=== PATIENT | female | born 1945 | race Caucasian/White ===

== ENCOUNTER 2016-08-15 12:30 | Inpatient (IN) | payer MEDICARE, OTHER ==
[~2016-08-15] VITALS: Ht 167.6 cm; Wt 88.5 kg
[2016-08-16] MEDS ORDERED: HUMIRA40 MG/0.2 SUBQ (14:44)
[2016-08-16] MEDS ORDERED: ASPIRIN325 MG ORAL (14:45)
[2016-08-16] MEDS ORDERED: LEVOTHYROXINE50 MCG ORAL (14:47)
[2016-08-16] MEDS ORDERED: METOPROLOL SUCC50 MG ORAL (14:48)
[2016-08-16] MEDS ORDERED: LISINOPRIL10 MG ORAL (14:48)
[2016-08-17] VITALS (12 sets, daily range): BP systolic 102–141; BP diastolic 64–86
--- NOTE | 2016-08-17 14:57 | General Progress Note ---
Assessment/Plan Assessment/Plan knee arthritis s/p knee replacement post operative pain Plan incentive spirometry PT pain management follow up labs continue same impression, plan, and exam edited and reviewed in detail care discussed with RN Subjective Allergies: Coded Allergies: LINAGLIPTIN (Verified Allergy, Intermediate, RASH, 08/16/16) SULFA (SULFONAMIDE ANTIBIOTICS) (Verified Allergy, Intermediate, RASH, ) ADHESIVE TAPE (Verified Adverse Reaction, Severe, 08/17/16) THIN SKIN DUE TO HUMIRA SIDE EFFECT Subjective asked to follow up will see post operatively Objective Last 24 Hour Vital Signs Date Time Temp Pulse Resp B/P Pulse Ox O2 Delivery O2 Flow Rate FiO2 08/17/16 13:21 97.7 78 20 102/66 97 Room Air Height (Feet): 5 Height (Inches): 6.00 Weight (Pounds): 195 Objective WDWN NAD clear breath sounds bilaterally without rhonchi or wheeze [id number] without MRG NABS nontender no HSM no CCE nonfocal ANA UFLLER Aug 17, 2016 14:57
--- NOTE | 2016-08-17 15:53 | Anethesia Preoperative Eval ---
Anesthesia Pre-op PMH/ROS General Date of Evaluation: Aug 17, 2016 Anesthesiologist: Valentino ASA Score: ASA 3 Mallampati Score Class I : Soft palate, uvula, fauces, pillars visible Class II: Soft palate, uvula, fauces visible Class III: Soft palate, base of uvula visible Class IV: Only hard plate visible Mallampati Classification: Class III Surgeon: Gilberto Diagnosis: Left knee osetoarthritis Surgical Procedure: Left TKR Anesthesia History: none Family History: no anesthesia problems Allergies: Coded Allergies: LINAGLIPTIN (Verified Allergy, Intermediate, RASH, 08/16/16) SULFA (SULFONAMIDE ANTIBIOTICS) (Verified Allergy, Intermediate, RASH, ) ADHESIVE TAPE (Verified Adverse Reaction, Severe, 08/17/16) THIN SKIN DUE TO HUMIRA SIDE EFFECT Medications: see eMAR Past Medical History Cardiovascular: Reports: HTN, arrhythmia - afib, with 1st degree AV block, other - HLD, Denies: CAD, MO, valve dz Pulmonary: Reports: JASWINDER - on CPAP, Denies: COPD, asthma, other Gastrointestinal/Genitourinary: Reports: GERD, Denies: CRI, ESRD, other Neurologic/Psychiatric: Denies: CVA, TIA, dementia, depression/anxiety, other Endocrine: Reports: hypothyroidism, Denies: DM, other, steroids HEENT: Denies: [place] (L), [place] (R), cataract (L), cataract (R), glaucoma, other Hematology/Immune: Reports: anemia - chronic, Denies: DVT, bleeding disorder, other Musculoskeletal/Integumentary: Reports: OA, Denies: DDD, DJD, RA, edema, other Other: other - overweight PSxH Narrative: T&A, lap giovani, SEYMOUR/BSO, lumbar lami, left knee arthroscopies Anesthesia Pre-op Phys. Exam Physician Exam Last Vital Signs Date Time Temp Pulse Resp B/P Pulse Ox O2 Delivery O2 Flow Rate FiO2 08/17/16 13:21 97.7 78 20 102/66 97 Room Air Constitutional: NAD Cardiovascular: RRR Airway Exam Mallampati Score: Class III MO: full ROM: full Anesthesia Pre-op A/P Labs see chart Studies Pre-op Studies: EKG - Afib Risk Assessment & Plan Assessment: ASA III Plan: GA Status Change Before Surgery: No Pre-Antibiotics Drug: Ancef 2g Given Within 1 Hr of Incision: Yes Time Given: 17:30 EUGENIO MA M.D. Aug 17, 2016 15:53
--- NOTE | 2016-08-17 16:40 | Pre-Procedure Note/Attestation ---
Pre-Procedure Note/Attestation Complete Prior to Procedure Planned Procedure: left Procedure Narrative: left knee replacement Indications for Procedure Pre-Operative Diagnosis: left knee arthritis Attestation I attest that I discussed the nature of the procedure; its benefits; risks and complications; and alternatives (and the risks and benefits of such alternatives ), prior to the procedure, with the patient (or the patient's legal field sales representative). I attest that, if there was a reasonable possibility of needing a blood transfusion, the patient (or the patient's legal field sales representative) was given the [facility] standardized written summary, pursuant to the Juan Daniel [place] Blood Safety Act ([place] Health and Safety Code # 1645, as amended). I attest that I re-evaluated the patient just prior to the surgery and that there has been no change in the patient's H&P, except as documented below: AURELIA HAWK Aug 17, 2016 16:40
--- NOTE | 2016-08-17 16:43 | Brief Operative Note ---
Immediate Post Operative Note Operative Note Pre-op Diagnosis: left knee arthritis Procedure: left knee repalcement Post-op Diagnosis: left knee arthritis Post-op Diagnosis: same as pre-op Findings: consistent w/pre-op dx studies Surgeon: lisa Redrying Machine Operator: venecia cosby Anesthesia: general Specimen: yes Complications: none Condition: stable Implant(s) used?: Yes AURELIA HAWK Aug 17, 2016 16:43
[2016-08-17] MEDS ORDERED: Morphine Sulfate 2mg/ml Inj IVP PRN (16:45)
[2016-08-17] MEDS ORDERED: Bacitracin 50000 Units Vial ONE (16:46)
[2016-08-17] MEDS ORDERED: Midazolam 2mg/2ml Inj ONE (17:00)
[2016-08-17] MEDS ORDERED: LR 1000ml ONE (17:00)
[2016-08-17] MEDS ORDERED: Lidocaine 1% MPF 10mg/ml 5ml ONE (17:00)
[2016-08-17] MEDS ORDERED: Ketamine 500mg Inj ONE (17:00)
[2016-08-17] MEDS ORDERED: Zemuron 50mg/5ml Inj IV ONE (17:00)
[2016-08-17] MEDS ORDERED: NS Irrig 2000ml IRRIG ONE (17:00)
[2016-08-17] MEDS ORDERED: NS Irrig 1000ml ONE (17:00)
[2016-08-17] MEDS ORDERED: fentaNYL 250mcg/5ml ONE (17:00)
[2016-08-17] MEDS ORDERED: Propofol 10mg/ml 20ml IV ONE (17:19)
[2016-08-17] MEDS ORDERED: DiphenhydrAMINE 50mg/ml Inj ONE (17:19)
--- NOTE | 2016-08-17 18:22 | Immediate Post-Op Evaluation ---
Immediate Post-Op Evalulation Immediate Post-Op Evalulation Procedure: Left total knee replacement Date of Evaluation: Aug 17, 2016 Time of Evaluation: 19:34 IV Fluids: 1.5L Blood Products: 0 Estimated Blood Loss: 100 Urinary Output: 200 Blood Pressure Systolic: 122 Blood Pressure Diastolic: 73 Pulse Rate: 89 Respiratory Rate: 16 O2 Sat by Pulse Oximetry: 99 Temperature (Fahrenheit): 97 Pain Score (1-10): 2 Nausea: No Vomiting: No Complications 0 Patient Status: awake, reacts, patent, none Hydration Status: adequate Drug: Ancef 2g Given Within 1 Hr of Incision: Yes Time Given: 17:30 EUGENIO MA M.D. Aug 17, 2016 18:22
[2016-08-17] MEDS ORDERED: LR 1000ml 1,000 ML IVLG SCH (18:23)
--- NOTE | 2016-08-17 18:23 | 48 Hour Post Anesthesia Eval ---
Post Anesthesia Evaluation Procedure: Left total knee replacement Date of Evaluation: Aug 17, 2016 Time of Evaluation: 07:40 Blood Pressure Systolic: 128 0: 83 Pulse Rate: 93 Respiratory Rate: 19 O2 Sat by Pulse Oximetry: 100 Airway: patent Nausea: No Vomiting: No Hydration Status: adequate Cardiopulmonary Status: at baselilne Mental Status/LOC: patient returned to baseline Post-Anesthesia Complications: 0 Follow-up care needed: N/A - further care as per primary team EUGENIO MA M.D. Aug 17, 2016 18:23
[2016-08-17] MEDS ORDERED: Metoclopramide 10mg/2ml Inj IVP PRN (18:30)
[2016-08-17] MEDS ORDERED: DiphenhydrAMINE 50mg/ml Inj IVP PRN (18:30)
[2016-08-17] MEDS ORDERED: Labetalol 5mg/ml 20ml vial IV PRN (18:30)
[2016-08-17] MEDS ORDERED: fentaNYL 100 mcg/2 mL IV PRN (18:30)
[2016-08-17] MEDS ORDERED: Hydromorphone 0.5mg/0.5ml inj ONE (19:59)
[2016-08-17] MEDS: Hydromorphone 0.5mg/0.5ml inj IVP PRN ×3 (20:05→20:53)
[2016-08-17] MEDS: LORazepam Inj 2mg/ml 1ml IV PRN ×2 (20:17→20:52)
[2016-08-17 22:06] LABS: BASOPHILS % (AUTO) 0.5 % (0.0-2.0); EOSINOPHILS % (AUTO) 1.1 % (0.0-3.0); LYMPHOCYTES % (AUTO) 21.6 % (20.0-45.0); MEAN CORPUSCULAR HEMOGLOBIN 30.6 PG (27.0-31.0); MEAN CORPUSCULAR HGB CONC 32.6 G/DL (32.0-36.0); MEAN CORPUSCULAR VOLUME 94 FL (80-99); MEAN PLATELET VOLUME 6.8 FL (6.5-10.1); MONOCYTES % (AUTO) 7.1 % (1.0-10.0); NEUTROPHILS % (AUTO) 69.8 % (45.0-75.0); PLATELET COUNT 206 K/UL (150-450); RED BLOOD COUNT 3.71 M/UL (4.20-5.40); RED CELL DISTRIBUTION WIDTH 13.9 % (11.6-14.8); WHITE BLOOD COUNT 11.8 K/UL (4.8-10.8)
[2016-08-17 22:18] LABS: INR 1.1 (0.9-1.1); PROTHROMBIN TIME 10.7 SEC (9.30-11.50)
[2016-08-18] VITALS: BP 122/80
[2016-08-18] MEDS: Morphine Sulfate 4mg/ml Inj IVP PRN ×5 (00:25→21:38)
[2016-08-18] MEDS: D5 1/2NS w/KCl 20mEq 1,000 ML IV SCH ×3 (01:00→21:38)
[2016-08-18] MEDS: ceFAZolin sod 1 GM in D5W 55 ML IV SCH ×2 (01:52→09:47)
[2016-08-18 04:00] VITALS: BP 128/83
[2016-08-18 05:57] LABS: BASOPHILS % (AUTO) 0.6 % (0.0-2.0); EOSINOPHILS % (AUTO) 0.2 % (0.0-3.0); LYMPHOCYTES % (AUTO) 11.4 % (20.0-45.0); MEAN CORPUSCULAR HEMOGLOBIN 30.8 PG (27.0-31.0); MEAN CORPUSCULAR HGB CONC 33.4 G/DL (32.0-36.0); MEAN CORPUSCULAR VOLUME 92 FL (80-99); MEAN PLATELET VOLUME 8.3 FL (6.5-10.1); MONOCYTES % (AUTO) 9.2 % (1.0-10.0); NEUTROPHILS % (AUTO) 78.5 % (45.0-75.0); PLATELET COUNT 203 K/UL (150-450); RED BLOOD COUNT 3.83 M/UL (4.20-5.40); RED CELL DISTRIBUTION WIDTH 13.6 % (11.6-14.8); WHITE BLOOD COUNT 10.9 K/UL (4.8-10.8)
[2016-08-18 06:20] LABS: PROTHROMBIN TIME 10.4 SEC (9.30-11.50)
[2016-08-18 06:28] LABS: ANION GAP 13 (5-15); CALCIUM 8.4 mg/dL (8.6-10.2); CARBON DIOXIDE 23 mEQ/L (20-30); CHLORIDE 101 mEQ/L (98-107); HEMOLYSIS 14; POTASSIUM 4.6 mEQ/L (3.4-4.9); SODIUM 137 mEQ/L (135-145)
[2016-08-18] MEDS: Morphine Sulfate 2mg/ml Inj IVP PRN (06:40)
--- NOTE | 2016-08-18 08:48 | General Progress Note ---
Assessment/Plan Assessment/Plan knee arthritis s/p knee replacement post operative pain Plan incentive spirometry PT pain management follow up labs continue same follow up HH resume home meds impression, plan, and exam edited and reviewed in detail care discussed with RN Subjective Allergies: Coded Allergies: LINAGLIPTIN (Verified Allergy, Intermediate, RASH, 08/16/16) SULFA (SULFONAMIDE ANTIBIOTICS) (Verified Allergy, Intermediate, RASH, ) ADHESIVE TAPE (Verified Adverse Reaction, Severe, 08/17/16) THIN SKIN DUE TO HUMIRA SIDE EFFECT Subjective comfortable overnight pain controlled Objective Last 24 Hour Vital Signs Date Time Temp Pulse Resp B/P Pulse Ox O2 Delivery O2 Flow Rate FiO2 08/18/16 08:42 93 19 100 08/18/16 04:00 97.2 93 19 128/83 100 Nasal Cannula 3.0 08/18/16 00:00 97.0 101 19 122/80 99 Nasal Cannula 3.0 08/17/16 21:03 98.0 90 20 131/86 99 Nasal Cannula 3.0 08/17/16 20:53 84 20 125/69 99 Nasal Cannula 3.0 08/17/16 20:52 97.0 08/17/16 20:45 83 20 132/74 99 Nasal Cannula 3.0 08/17/16 20:30 79 20 117/83 99 Nasal Cannula 3.0 08/17/16 20:23 70 20 120/69 99 Nasal Cannula 3.0 08/17/16 20:10 82 20 141/79 99 Nasal Cannula 3.0 08/17/16 20:05 82 20 141/79 99 Simple Mask 8.0 08/17/16 19:55 82 20 141/79 99 Simple Mask 8.0 08/17/16 19:40 99 20 127/71 99 Simple Mask 8.0 08/17/16 19:37 89 16 99 08/17/16 19:35 86 20 110/64 99 Simple Mask 8.0 08/17/16 19:29 98.6 113 20 122/73 99 Simple Mask 8.0 08/17/16 13:21 97.7 78 20 102/66 97 Room Air Intake and Output 08/17/16 08/18/16 19:00 07:00 Intake Total 2900 ml Output Total 1275 ml Balance 1625 ml Intake IV Total 2900 ml Output Urine Total 875 ml Drainage Total 300 ml Estimated Blood Loss 100 ml Laboratory Tests 08/17/16 21:48: White Blood Count 11.8H, Red Blood Count 3.71L, Hemoglobin 11.4L, Hematocrit 34.8L, Mean Corpuscular Volume 94, Mean Corpuscular Hemoglobin 30.6, Mean Corpuscular Hemoglobin Concent 32.6, Red Cell Distribution Width 13.9, Platelet Count 206, Mean Platelet Volume 6.8, Neutrophils (%) (Auto) 69.8, Lymphocytes (% ) (Auto) 21.6, Monocytes (%) (Auto) 7.1, Eosinophils (%) (Auto) 1.1, Basophils ( %) (Auto) 0.5, Prothrombin Time 10.7, Prothromb Time International Ratio 1.1 08/18/16 05:35: White Blood Count 10.9H, Red Blood Count 3.83L, Hemoglobin 11.8L, Hematocrit 35.3L, Mean Corpuscular Volume 92, Mean Corpuscular Hemoglobin 30.8, Mean Corpuscular Hemoglobin Concent 33.4, Red Cell Distribution Width 13.6, Platelet Count 203, Mean Platelet Volume 8.3, Neutrophils (%) (Auto) 78.5H, Lymphocytes ( %) (Auto) 11.4L, Monocytes (%) (Auto) 9.2, Eosinophils (%) (Auto) 0.2, Basophils (%) (Auto) 0.6, Prothrombin Time 10.4, Prothromb Time International Ratio 1.0, Sodium Level 137, Potassium Level 4.6, Chloride Level 101, Carbon Dioxide Level 23, Anion Gap 13, Blood Urea Nitrogen 13, Creatinine 1.0H, Estimat Glomerular Filtration Rate , Glucose Level 141H, Calcium Level 8.4L Height (Feet): 5 Height (Inches): 6.00 Weight (Pounds): 195 Objective WDWN NAD clear breath sounds bilaterally without rhonchi or wheeze [id number] without MRG NABS nontender no HSM no CCE nonfocal ANA FULLER Aug 18, 2016 08:48
[2016-08-18 09:02] VITALS: BP 129/80
[2016-08-18] MEDS: Enoxaparin 40mg Inj SUBQ SCH (09:12)
[2016-08-18] MEDS: celeBREX 200mg Cap **SURGERY PATIENTS ONLY ORAL SCH (09:15)
--- NOTE | 2016-08-18 09:40 | Diagnostic Imaging Report ---
Indication: Left knee. Technique: Left knee 2 views Comparison: None Findings: The patient is status post left total knee arthroplasty. Hardware alignment is satisfactory. Skin michoacano, soft tissue gas and a surgical drain are present. No perihardware fracture is identified. Impression: Status post left total knee arthroplasty with postoperative changes.
[2016-08-18] MEDS: Norco 7.5mg/325mg tab ORAL PRN ×2 (11:15→18:57)
[2016-08-18 16:00] VITALS: BP 124/74
[2016-08-18 20:00] VITALS: BP 115/67
[2016-08-19] VITALS: BP 132/57
[2016-08-19] MEDS: Morphine Sulfate 4mg/ml Inj IVP PRN ×3 (02:29→20:43)
[2016-08-19 04:00] VITALS: BP 130/76
[2016-08-19] MEDS: D5 1/2NS w/KCl 20mEq 1,000 ML IV SCH (07:06)
[2016-08-19 08:00] VITALS: BP 123/73
[2016-08-19 08:47] LABS: PROTHROMBIN TIME 10.6 SEC (9.30-11.50)
[2016-08-19] MEDS: celeBREX 200mg Cap **SURGERY PATIENTS ONLY ORAL SCH (09:23)
[2016-08-19] MEDS: Enoxaparin 40mg Inj SUBQ SCH (09:25)
--- NOTE | 2016-08-19 09:52 | General Progress Note ---
Progress Note Progress Note doing well xrays perfect no calf pain neurovascular intact progressing labs and bvitals stable plan dressing change continue therapy AURELIA HAWK Aug 19, 2016 09:52
--- NOTE | 2016-08-19 10:42 | General Progress Note ---
Assessment/Plan Assessment/Plan knee arthritis s/p knee replacement post operative pain Plan exam stable ortho noted incentive spirometry PT pain management follow up labs continue same follow up HH and need for transfusion dc planning resume home meds impression, plan, and exam edited and reviewed in detail care discussed with RN Subjective Allergies: Coded Allergies: LINAGLIPTIN (Verified Allergy, Intermediate, RASH, 08/16/16) SULFA (SULFONAMIDE ANTIBIOTICS) (Verified Allergy, Intermediate, RASH, ) ADHESIVE TAPE (Verified Adverse Reaction, Severe, 08/17/16) THIN SKIN DUE TO HUMIRA SIDE EFFECT Subjective comfortable overnight no distress at present Objective Last 24 Hour Vital Signs Date Time Temp Pulse Resp B/P Pulse Ox O2 Delivery O2 Flow Rate FiO2 08/19/16 08:00 97.7 94 20 123/73 97 Room Air 08/19/16 04:00 98.1 90 21 130/76 95 Nasal Cannula 08/19/16 00:00 98.2 93 18 132/57 97 Nasal Cannula 08/18/16 22:05 97.9 08/18/16 20:00 97.9 95 14 115/67 96 Room Air 08/18/16 19:56 97.3 08/18/16 16:00 97.3 92 20 124/74 97 Room Air Intake and Output 08/18/16 08/19/16 19:00 07:00 Intake Total 1200 ml 300 ml Output Total 15 ml Balance 1200 ml 285 ml Intake IV Total 1200 ml 300 ml Drainage Total 15 ml # Voids 8 Laboratory Tests 08/19/16 06:30: Prothrombin Time 10.6, Prothromb Time International Ratio 1.0 Height (Feet): 5 Height (Inches): 6.00 Weight (Pounds): 195 Objective WDWN NAD clear breath sounds bilaterally without rhonchi or wheeze [id number] without MRG NABS nontender no HSM no CCE nonfocal ANA FULLER Aug 19, 2016 10:42
[2016-08-19 12:00] VITALS: BP 126/105
[2016-08-19] MEDS ORDERED: Tubing IV Secondary IV ONE (15:23)
[2016-08-19 16:00] VITALS: BP 125/68
[2016-08-19 20:00] VITALS: BP 125/74
[2016-08-20] VITALS: BP 125/72
[2016-08-20] MEDS: Morphine Sulfate 2mg/ml Inj IVP PRN (00:11)
[2016-08-20] MEDS: Norco 7.5mg/325mg tab ORAL PRN ×3 (00:25→14:03)
[2016-08-20 04:00] VITALS: BP 120/64
[2016-08-20 07:36] LABS: PROTHROMBIN TIME 10.5 SEC (9.30-11.50)
[2016-08-20 08:13] VITALS: BP 122/70
--- NOTE | 2016-08-20 08:14 | General Progress Note ---
Assessment/Plan Assessment/Plan knee arthritis s/p knee replacement post operative pain Plan exam stable and without change ortho noted incentive spirometry PT pain management follow up labs noted dc planning to SNF today continue home meds impression, plan, and exam edited and reviewed in detail care discussed with RN Subjective Allergies: Coded Allergies: LINAGLIPTIN (Verified Allergy, Intermediate, RASH, 08/16/16) SULFA (SULFONAMIDE ANTIBIOTICS) (Verified Allergy, Intermediate, RASH, ) ADHESIVE TAPE (Verified Adverse Reaction, Severe, 08/17/16) THIN SKIN DUE TO HUMIRA SIDE EFFECT Subjective comfortable overnight no distress at present ambulating drain out Objective Last 24 Hour Vital Signs Date Time Temp Pulse Resp B/P Pulse Ox O2 Delivery O2 Flow Rate FiO2 08/20/16 08:13 98.1 99 18 122/70 95 Room Air 08/20/16 04:00 97.7 99 18 120/64 95 Room Air 08/20/16 00:00 98.4 109 18 125/72 96 Room Air 08/19/16 20:00 99.0 96 18 125/74 96 Room Air 08/19/16 16:58 Nasal Cannula 3.0 32 08/19/16 16:58 96 Nasal Cannula 3.0 32 08/19/16 16:00 98.2 100 20 125/68 97 Room Air 08/19/16 12:00 98.1 100 20 126/105 96 Room Air Laboratory Tests 08/20/16 05:45: Prothrombin Time 10.5, Prothromb Time International Ratio 1.0 Height (Feet): 5 Height (Inches): 6.00 Weight (Pounds): 195 Objective WDWN NAD clear breath sounds bilaterally without rhonchi or wheeze [id number] without MRG NABS nontender no HSM no CCE nonfocal ANA FULLER Aug 20, 2016 08:14
[2016-08-20] MEDS: celeBREX 200mg Cap **SURGERY PATIENTS ONLY ORAL SCH (08:56)
[2016-08-20] MEDS: Enoxaparin 40mg Inj SUBQ SCH (08:59)
[2016-08-20] MEDS ORDERED: Lisinopril 10mg tab ORAL SCH (09:00)
[2016-08-20 12:01] VITALS: BP 114/84
--- NOTE | 2016-08-21 02:07 | Operative Note - Dictated ---
DATE OF OPERATION: 08/17/2016 NOTE: POOR AUDIO PREOPERATIVE DIAGNOSES: 1. Left knee end-stage osteoarthritis. 2. Left knee flexion contracture. POSTOPERATIVE DIAGNOSES: 1. Left knee end-stage osteoarthritis. 2. Left knee flexion contracture. PROCEDURE: 1. Left total knee replacement . 2. Posterior flexion contracture. SURGEON: Stiven Macias M.D. RESPIRATORY CARE ASSISTANT: Ayesha. SCIENCE FACULTY MEMBER: Alan. PREOPERATIVE NOTE: This is a pleasant lady, who has pain underneath the , injection, and anti-inflammatories, . I explained to her the surgery and the risks being infection, bleeding, anesthetic risks, neurovascular damage, DVT, PE, and failure of the operation. The patient agreed. Consents were obtained. OPERATIVE NOTE: Under the benefit of endotracheal intubation and general anesthetic, the patient's knee was prepped and draped in an appropriate manner . A midline incision was made and incised through the subcutaneous tissue down from medial retinaculum and then everted the patella removing osteophytes from synovium. rheumatoid in etiology. I then proceeded to drill down the center of femur on AP and lateral planes. A . Sizes to the knee making my anterior cut, posterior cut, anterior chamfer, posterior chamfer cut with external rotation with respective epicondyle access perfectly in the to 2 mm of the low side, which is lateral with a built and covered with a 7-degree slope. This was taken off with extension and flexion gap blocks with full extension, full flexion, and full mediolateral stability at 0, 30, 60, 90, and 120 with no medial or lateral instability. Negative drawer. I then proceeded to the patella. The patella looked perfect. A we had full flexion with full mediolateral stability and full range of motion. I closed the retinaculum with number #1 Vicryl, subcutaneous tissue with 2-0 Vicryl, and skin with michoacano. Estimated blood loss is approximately 200 mL. Operative time was approximately 55 minutes. There were no complications. Bal Lorenzo Macias DR: BLESSING JOB#: [id number] CC:
--- NOTE | 2016-08-21 11:02 | Discharge Summary ---
Discharge Summary Hospital Course Date of Admission Aug 17, 2016 at 11:40 Date of Discharge Aug 20, 2016 at 14:33 Admitting Diagnosis L knee osteoarthritis Reason for Hospitalization: elective surgery HPI Jeri Arroyo is a 71 year old female who was admitted on Aug 17, 2016 patient with history of left knee osteoarthritis admitted fro elective surgery Consultations dr Sotelo - internal medicine Procedures 08/17/16 - Left total knee replacement Hospital Course patient with left knee osteoarthritis admitted fro elective surgery s/p 08/17 left total knee replacement CXR post surgery - Hardware alignment is satisfactory. Skin michoacano, soft tissue gas and a surgical drain are present. course of recovery was uneventful initially with drain, which discontinued after drainage decreased surgery followed PT/OT pain management bowel regimen DVT prophylaxis IS , was encouraged to use while in bed tolerated diet voided freely ambulated with assistance stable for discharge to SNF for PT/OT All laboratory work .stable, vital signs stable Discharge Medications Continued Medications: Adalimumab (Humira) 40 Mg/0.8 Ml Pen.ij.kit 40 MG SUBQ Q14D, KIT Aspirin* (Aspirin*) 325 Mg Tablet 325 MG ORAL DAILY, TAB Levothyroxine Sodium* (Levothyroxine Sodium*) 50 Mcg Tablet 50 MCG ORAL DAILY, TAB Take in the morning on an empty stomach, at least 30 minutes before food. Lisinopril* (Lisinopril*) 10 Mg Tablet 10 MG ORAL DAILY, TAB Metoprolol Succinate* (Metoprolol Succinate*) 50 Mg Tab.er.24h 50 MG ORAL DAILY, TAB Discharge Condition Upon Discharge: improving, stable Discharge Disposition Patient was discharged to SNF/Subacute Facility(03) Discharge Diagnoses: (1) Osteoarthritis of left knee (2) S/P total knee replacement Discharge Instructions Discharge Instructions Special Instructions I have been assigned to complete a D/C Summary on this account. I was not involved in the patient management Juanis Walker NP (Vanchtein) Aug 21, 2016 11:02
== END 2016-08-20 14:33 | DRG 470 ==
LOC: SDSOVERFLO 08-17 11:40 → 3E 08-17 23:22
PROC: 0SRD0J9 Replacement of Left Knee Joint with Synthetic Substitute, Cemented, Open Approach (ICD-10-PCS; principal; 2016-08-17 15:00)
DX: M17.12 Unilateral primary osteoarthritis, left knee (principal); I10 Essential (primary) hypertension; K21.9 Gastro-esophageal reflux disease without esophagitis; E78.5 Hyperlipidemia, unspecified; E03.9 Hypothyroidism, unspecified
CPT/HCPCS: 36415; 80048; 82962; 85025; 85610; 86850; 86900; 86901; 86920; 87081; 94003; 94150; 94760; J2250; J2405

== ENCOUNTER → 2017-01-04 | Outpatient (CLI) | payer MEDICARE, OTHER ==
[~2017-01-04] MED LIST: ASPIRIN325 MG ORAL; HUMIRA40 MG/0.2 SUBQ; LEVOTHYROXINE50 MCG ORAL; LISINOPRIL10 MG ORAL; METOPROLOL SUCC50 MG ORAL
--- NOTE | 2017-01-04 15:27 | Diagnostic Imaging Report ---
Indication: COUGH Technique: 2 views of the chest Comparison: none. Findings: Lungs and pleural spaces are clear. Heart size is normal. Bones are unremarkable. Cholecystectomy clips are incidentally noted. Impression: No acute process
== END | disposition home or self-care (01) ==
LOC: RAD 14:25
DX: R05 Cough (principal); Z90.49 Acquired absence of other specified parts of digestive tract
CPT/HCPCS: 71020

== ENCOUNTER 2017-10-08 07:30 | Inpatient (IN) | payer MEDICARE, MEDICAID ==
[~2017-10-08] VITALS: Ht 167.6 cm; Wt 87.2 kg
--- NOTE | 2017-10-10 15:14 | Diagnostic Imaging Report ---
Indication: Cough Technique: 2 views of the chest Comparison: 01/04/2017 Findings: Lungs and pleural spaces are clear. Heart size is normal. No significant change Impression: No acute process
[2017-10-18] VITALS (12 sets, daily range): BP systolic 82–122; BP diastolic 40–72
[2017-10-18] MEDS ORDERED: PCA HYDROmorphone 1mg/ml 30 ML IV PRN (12:15)
[2017-10-18] MEDS ORDERED: oxyCODONE 5mg IR tab ORAL PRN (12:15)
[2017-10-18] MEDS ORDERED: Dronabinol 2.5mg Cap ORAL SCH (12:15)
[2017-10-18] MEDS ORDERED: HYDROmorphone 1mg/ml Carpuject SUBQ PRN (12:15)
[2017-10-18] MEDS ORDERED: NS Irrig 1000ml ONE (12:30)
[2017-10-18] MEDS ORDERED: Amiodarone 150mg/ml 3ml Amp ONE (12:30)
[2017-10-18] MEDS ORDERED: fentaNYL 100 mcg/2 mL IV ONE (12:30)
[2017-10-18] MEDS ORDERED: LR 1000ml ONE (12:30)
[2017-10-18] MEDS ORDERED: Propofol 200mg/20ml IV ONE (12:30)
[2017-10-18] MEDS ORDERED: Midazolam 2mg/2ml Inj ONE (12:30)
[2017-10-18] MEDS ORDERED: NeoSporin Gu Irrig 1ml Amp IRRIG ONE (12:37)
[2017-10-18] MEDS ORDERED: Bacitracin 50000 Units Vial ONE (12:37)
--- NOTE | 2017-10-18 12:38 | Pre-Procedure Note/Attestation ---
Pre-Procedure Note/Attestation Complete Prior to Procedure Planned Procedure: right Procedure Narrative: right knee replacmenet Indications for Procedure Pre-Operative Diagnosis: right knee artyhritis Attestation I attest that I discussed the nature of the procedure; its benefits; risks and complications; and alternatives (and the risks and benefits of such alternatives ), prior to the procedure, with the patient (or the patient's legal in store marketing representative). I attest that, if there was a reasonable possibility of needing a blood transfusion, the patient (or the patient's legal in store marketing representative) was given the [facility] standardized written summary, pursuant to the Juan Daniel [place] Blood Safety Act ([place] Health and Safety Code # 1645, as amended). I attest that I re-evaluated the patient just prior to the surgery and that there has been no change in the patient's H&P, except as documented below: AURELIA HAWK Oct 18, 2017 12:38
[2017-10-18] MEDS ORDERED: LR 1000ml 1,000 ML IVLG SCH (12:41)
[2017-10-18] MEDS ORDERED: Ropivacaine 5mg/ml Vial 30ml INJ ONE (12:42)
[2017-10-18] MEDS ORDERED: Acetaminophen (Non formulary) 100 ML IV ONE (12:45)
[2017-10-18] MEDS ORDERED: Midazolam 2mg/2ml Inj IVP PRN (12:45)
[2017-10-18] MEDS ORDERED: Labetalol 5mg/ml 20ml vial IV PRN (12:45)
[2017-10-18] MEDS ORDERED: DiphenhydrAMINE 50mg/ml Inj IVP PRN (12:45)
[2017-10-18] MEDS ORDERED: HYDROcodone/Acetamin 7.5/325 tab ORAL PRN (12:45)
[2017-10-18] MEDS ORDERED: Morphine Sulfate 2mg/ml Inj IVP PRN ×3 (12:45→19:15)
[2017-10-18] MEDS ORDERED: fentaNYL 100 mcg/2 mL IV PRN (12:45)
[2017-10-18] MEDS ORDERED: Morphine Sulfate 4mg/ml Inj IVP PRN (12:45)
[2017-10-18] MEDS ORDERED: Ketorolac 30mg Inj IV PRN (12:45)
[2017-10-18] MEDS ORDERED: Hydromorphone 0.5mg/0.5ml inj IVP PRN (12:45)
[2017-10-18] MEDS ORDERED: Atropine Inj 1mg/10ml Syr IV PRN (12:45)
[2017-10-18] MEDS ORDERED: Amiodarone 900 MG in D5W 500ml 482 ML IV SCH (13:15)
[2017-10-18] MEDS ORDERED: ceFAZolin sod 1 GM in D5W 55 ML IV SCH (14:00)
--- NOTE | 2017-10-18 15:32 | Diagnostic Imaging Report ---
Indication: Reason For Exam: PREOP Technique: 3 views of the right knee Comparison: None Findings: There are superior and inferior pole patellar osteophytes. There is mild medial compartment degenerative joint space narrowing. No acute fractures. No dislocations. Impression: Mild degenerative changes. No acute process
--- NOTE | 2017-10-18 17:03 | Cardiology Progress Note ---
Assessment/Plan Assessment/Plan [id number] reproted vt priror to surgery wheil sedated (no strip avialve to confirm or review) reported Bradycardia hs of svt / afib remotely nto on anticoagualtionm hs of htn off meds for 5 day hypotension obesity s/ 150 lg weig loss low voltage qrs complexes lorraine hs of pericarditis serial ezyem ekg cortisol echo ivf hold antihypertnsives will need lopes for ramiro and or vent arrthymia will follow dWest/ rn and dr shepherd Objective Last 24 Hour Vital Signs Date Time Temp Pulse Resp B/P (MAP) Pulse Ox O2 Delivery O2 Flow Rate FiO2 10/18/17 15:00 97.9 76 19 92/62 100 Nasal Cannula 2.0 97.9 10/18/17 14:45 77 19 88/61 100 Nasal Cannula 2.0 10/18/17 14:30 76 19 87/61 100 Nasal Cannula 2.0 10/18/17 14:15 75 20 86/62 100 Nasal Cannula 2.0 10/18/17 14:06 74 20 83/63 100 Simple Mask 6.0 10/18/17 14:01 71 19 85/62 100 Simple Mask 6.0 10/18/17 13:56 97.9 72 18 82/55 100 Simple Mask 6.0 97.9 10/18/17 10:54 98.1 70 18 109/68 97 Room Air 98.1 MARCELLO NICHOLSON Oct 18, 2017 17:03
[2017-10-18] MEDS ORDERED: Chloraseptic Spray 20mL Bottle ORAL PRN (17:05)
[2017-10-18] MEDS ORDERED: Cyclobenzaprine 10mg Tab ORAL PRN ×3 (17:13→19:15)
[2017-10-18] MEDS ORDERED: Sodium Chloride 500ML 1,000 ML IV SCH (17:15)
[2017-10-18] MEDS ORDERED: D5 1/2NS w/KCl 20mEq 1,000 ML IV SCH (18:00)
[2017-10-18 19:38] LABS: BASOPHILS % (AUTO) 0.6 % (0.0-2.0); HEMATOCRIT 35.4 % (37.0-47.0); HEMOGLOBIN 12.3 G/DL (12.0-16.0); LYMPHOCYTES % (AUTO) 30.2 % (20.0-45.0); MEAN CORPUSCULAR VOLUME 96 FL (80-99); MONOCYTES % (AUTO) 7.2 % (1.0-10.0); NEUTROPHILS % (AUTO) 61.1 % (45.0-75.0); PLATELET COUNT 175 K/UL (150-450); RED BLOOD COUNT 3.67 M/UL (4.20-5.40)
[2017-10-18] MEDS: Lactobacillus-GG tablet ORAL SCH (19:48)
[2017-10-18 19:57] LABS: ANION GAP 5 mmol/L (5-15); BLOOD UREA NITROGEN 17 mg/dL (7-18); CALCIUM 8.3 MG/DL (8.5-10.1); CARBON DIOXIDE 29 MMOL/L (21-32); CHLORIDE 107 MMOL/L (98-107); CREATININE 1.1 MG/DL (0.55-1.30); POTASSIUM 4.2 MMOL/L (3.5-5.1); SODIUM 141 MMOL/L (136-145)
[2017-10-18 20:05] LABS: ALANINE AMINOTRANSFERASE 24 U/L (12-78); ALKALINE PHOSPHATASE 58 U/L (46-116); ASPARTATE AMINO TRANSFERASE 24 U/L (15-37); BILIRUBIN,TOTAL 0.2 MG/DL (0.2-1.0)
--- NOTE | 2017-10-18 20:45 | Consultation ---
DATE OF CONSULTATION: 10/18/2017 CONSULTING PHYSICIAN: eJffy Pelaez M.D. REFERRING PHYSICIAN: Stiven Macias M.D. REASON FOR CONSULTATION: Acute pain consult. HISTORY OF PRESENT ILLNESS: Dear Dr. Stiven Macias, Thank you kindly for consulting me to evaluate and render an opinion as to how to proceed in the management of the patient's postop pain after right total knee arthroplasty scheduled for later today. The patient is an elderly obese woman. You consulted me to help with her pain control postoperatively since she has multiple medical problem, including cardiac issues. Additionally the pain uses significant narcotics preoperatively, including high-dose marijuana. I saw the patient at bedside. I performed a detailed history and physical examination, I reviewed the medical record in detail including advance directives. PAST MEDICAL HISTORY: 1. Chronic right knee pain, scheduled for right total knee arthroplasty by Dr. Stiven Macias October 18, 2017. 2. Elderly age. 3. Heavy marijuana usage. 4. Hypertension. 5. Hypothyroidism. 6. History of cardiac disease followed by Cardiology. PAST SURGICAL HISTORY: Left total knee arthroplasty by Dr. Macias. MEDICATIONS: Medications at home, aspirin 325 mg daily, Synthroid 50 mcg daily, lisinopril 5 mg daily, metoprolol 50 mg daily, Percocet 10/325 one tablet three times a day , ALLERGIES: Sulfa, adhesive tape which both cause rash. SOCIAL HISTORY: The patient lives alone with cat. The patient denies tobacco or alcohol usage. She admits to smoking marijuana heavily throughout the day at least four times daily. FAMILY HISTORY: Noncontributory. REVIEW OF SYSTEMS: Per attending physician. PHYSICAL EXAMINATION: VITAL SIGNS: Age 72. Height 167 cm. Weight 69 kg. Body mass index 28. Afebrile. Pulse 70, respirations 18, blood pressure 109/68, oxygen saturation 97% on room air. GENERAL: This is a 72-year-old woman who appears much older than her stated age. Moving all extremities x4. NEUROLOGIC: A detailed neurologic and right knee exam per Dr. Macias. BREASTS: Deferred. GENITOURINARY: Deferred. CARDIOPULMONARY: Exam per hospitalist. Alert and orient x3. Pleasant. DIAGNOSTIC TESTING: Including laboratory studies and an cardiology examination are in the medical record. IMPRESSION: 1. Chronic right knee pain, scheduled for right total knee arthroplasty by Dr. Stiven Macias October 18, 2017. 2. Elderly age. 3. Heavy marijuana usage. 4. Hypertension. 5. Hypothyroidism. 6. History of cardiac disease followed by Cardiology. TREATMENT RECOMMENDATIONS: The patient has had previous surgeries, smokes marijuana heavily, and tolerated Percocet and Dilaudid in the past without any adverse side effects. To help with her pain postoperatively, I would recommend the following plan. I would start her on a Dilaudid [employer] with 0.2 mg demand dose at 10-min lockout and 3 mg 4-hour limit. Additionally, I would order continuous pulse oximetry and supplemental oxygen for least the first 24 hours for better safety profile. She chronically uses Flexeril 10 mg for her chronic back pain. Because she smokes marijuana so frequently at home, I would place her on a maximum dose of Marinol 2.5 mg orally every 8 hours for baseline analgesia. I would add breakthrough doses of Roxicodone 10 mg orally every three hours p.r.n. for moderate breakthrough pain. I would add a p.r.n. dose of Dilaudid 1 mg subcutaneously every three hours p.r.n. for severe breakthrough pain. I would instruct the nursing team to wait at least 60 minutes between any doses of sedating or pain medications to avoid respiratory depression in this obese elderly woman. I would order Protonix 40 mg nightly for GI ulcer prophylaxis along with a p.r.n. dose of Mylanta 30 mL q.6 hours in case of any GERD symptom exacerbation. I would order an incentive spirometer and encourage good pulmonary toilet. I will defer DVT prophylaxis to the surgeon. In case of any itching complaints, I would order Benadryl 25 mg every 6 hours p.r.n. I would also order a rescue dose of Zofran 4 mg intravenously every four hours as needed as an antiemetic agent. I would order Chloraseptic spray to the bedside to help with any sore throat complaints. I will defer the patient's multiple medical issues especially her cardiac disease to the hospitalist team to manage. Because the patient does live alone, I would expect she would likely need to be transferred to a rehabilitation facility after she is medically cleared to discharge from [facility]. Jeffy Pelaez M.D. DR: Tom JOB#: [id number] CC: NABIL
[2017-10-18] MEDS ORDERED: Morphine Sulfate 2mg/ml Inj IVP ONE (21:00)
[2017-10-18] MEDS ORDERED: TraZODone 100mg tab ORAL SCH (21:00)
[2017-10-18] MEDS ORDERED: Cyclobenzaprine 10mg Tab ORAL ONE (21:00)
[2017-10-18] MEDS: Aspirin Baby 81mg ORAL SCH (21:24)
[2017-10-18] MEDS: Atorvastatin 20mg tab ORAL SCH (21:24)
[2017-10-18] MEDS: Donepezil 5mg Tab ORAL SCH (21:24)
[2017-10-19] VITALS (22 sets, daily range): BP systolic 87–136; BP diastolic 44–97
--- NOTE | 2017-10-19 00:15 | History and Physical Report ---
DATE OF ADMISSION: 10/18/2017 CHIEF COMPLAINT: Bradicadia HISTORY OF PRESENT ILLNESS: The patient is a pleasant 73-year-old female, who was referred for a right knee replacement while she is being started on general anesthesia. She apparently became bradycardic. The procedure was canceled and she was transferred to the intensive care unit for bradycardia. Currently, heart rate is normal. She denies any chest pain or shortness of breath. The patient has a history of rheumatoid arthritis, pericarditis, hypertensive heart disease. She has significant family history of heart disease. She states that she had a stress test approximately two years ago that was normal. She denies any exertional chest pain, but she does get occasional episodes of chest pain that last only seconds, this come every few weeks. She denies any orthopnea or PND. EKG showed low voltage, venous duplex was negative. Recent echo shows normal LV function without any wall motion abnormalities. The troponin was 1.5. PAST MEDICAL HISTORY: As above. PAST SURGICAL HISTORY: Includes knee replacement, cholecystectomy. CURRENT MEDICATIONS: Reconciled and reviewed. ALLERGIES: Include adhesive tape, linagliptin, sulfa. SOCIAL HISTORY: Negative for tobacco or ethanol. The patient smokes recreational marijuana. FAMILY HISTORY: Significant for the patient has 17 uncle and aunts, who have all of heart disease out of a total of 19 including the patient's mother. REVIEW OF SYSTEMS: GENERAL: No fever or chills. HEENT: No headaches or visual changes. CARDIOPULMONARY: No chest pain or shortness of breath. GASTROINTESTINAL: No nausea or vomiting. GENITOURINARY: No urgency or frequency. MUSCULOSKELETAL: No joint pain or swelling. NEUROLOGIC: No evidence of seizures. PHYSICAL EXAMINATION: VITAL SIGNS: Temperature 97.9 degrees, pulse 76, respirations 19, and blood pressure 92/69. GENERAL: The patient is well developed, in no apparent distress. HEART: Regular rate and rhythm. LUNGS: Clear. ABDOMEN: Soft, nontender, and nondistended. EXTREMITIES: Without clubbing, cyanosis, or edema. LABORATORY DATA: White count 13, hemoglobin 12, hematocrit 35, platelets 175. Sodium 141, creatinine 1.1. Troponin 1.5. EKG showed low voltage. ASSESSMENT: This is a pleasant female with complaints of bradycardia and acute myocardial infarction: 1. Acute myocardial infarction. 2. Significant family history of heart disease. 3. History of hypotension. 4. Rheumatoid arthritis. 5. Hypothyroidism. 6. History of supraventricular tachycardia. PLAN: Antiplatelet therapy with aspirin. P.r.n. nitrates if any chest pain. Followup echo. Serial enzymes. Cardiology evaluation has already been obtained. The patient was brought into the intensive care unit for the time being. Osawld June M.D. DR: Dave JOB#: [id number] CC:
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
[2017-10-19 05:19] LABS: ALANINE AMINOTRANSFERASE 21 U/L (12-78); ALBUMIN 2.6 G/DL (3.4-5.0); ALBUMIN/GLOBULIN RATIO 0.9 (1.0-2.7); ALKALINE PHOSPHATASE 55 U/L (46-116); ANION GAP 6 mmol/L (5-15); ASPARTATE AMINO TRANSFERASE 18 U/L (15-37); BILIRUBIN,TOTAL 0.2 MG/DL (0.2-1.0); BLOOD UREA NITROGEN 15 mg/dL (7-18); CARBON DIOXIDE 29 MMOL/L (21-32); CHLORIDE 107 MMOL/L (98-107); CHOLESTEROL 159 MG/DL (< 200); CREATINE KINASE 43 U/L (26-308); CREATININE 1.1 MG/DL (0.55-1.30); HDL CHOLESTEROL 36 MG/DL (40-60); POTASSIUM 3.8 MMOL/L (3.5-5.1); SODIUM 142 MMOL/L (136-145); TRIGLYCERIDES 155 MG/DL (30-150)
[2017-10-19] MEDS: Aspirin Baby 81mg ORAL SCH (08:04)
[2017-10-19] MEDS: Lactobacillus-GG tablet ORAL SCH ×2 (08:05→17:05)
[2017-10-19] MEDS: Docusate 250mg cap ORAL SCH ×2 (08:05→17:05)
[2017-10-19] MEDS: Heparin 5000 units/ml inj SUBQ SCH ×2 (08:07→20:29)
[2017-10-19] MEDS ORDERED: Enoxaparin 40mg Inj SUBQ SCH (09:00)
--- NOTE | 2017-10-19 09:49 | General Progress Note ---
Assessment/Plan Problem List: (1) Knee arthropathy ICD Codes: M12.9 - Arthropathy, unspecified SNOMED: 340910421 (2) Osteoarthritis of left knee ICD Codes: M17.9 - Osteoarthritis of knee, unspecified SNOMED: 319948545 (3) Arrhythmia ICD Codes: I49.9 - Arrhythmia SNOMED: 877692128 Status: stable, progressing Assessment/Plan antiplt rx monitor for bradycardia dvt prophylaxis pain rx cards follow ?transfer for cath Subjective ROS Limited/Unobtainable: No Constitutional: Reports: malaise, weakness HEENT: Reports: no symptoms Cardiovascular: Reports: no symptoms Respiratory: Reports: no symptoms Gastrointestinal/Abdominal: Reports: no symptoms Genitourinary: Reports: no symptoms Neurologic/Psychiatric: Reports: no symptoms Endocrine: Reports: no symptoms Hematologic/Lymphatic: Reports: no symptoms Allergies: Coded Allergies: LINAGLIPTIN (Verified Allergy, Intermediate, RASH, 08/16/16) SULFA (SULFONAMIDE ANTIBIOTICS) (Verified Allergy, Intermediate, RASH, ) ADHESIVE TAPE (Verified Adverse Reaction, Severe, 08/17/16) THIN SKIN DUE TO HUMIRA SIDE EFFECT All Systems: reviewed and negative except above Subjective generalized pain. trop trending down. no cp/sob. no more bradycardia. Objective Last 24 Hour Vital Signs Date Time Temp Pulse Resp B/P (MAP) Pulse Ox O2 Delivery O2 Flow Rate FiO2 10/19/17 08:09 Nasal Cannula 2.0 28 10/19/17 08:09 99 Nasal Cannula 2.0 28 10/19/17 08:09 70 12 Nasal Cannula 2.0 28 10/19/17 08:00 98.7 76 15 113/70 98 Nasal Cannula 2.0 98.7 10/19/17 07:00 57 21 113/70 99 Nasal Cannula 2.0 10/19/17 06:00 53 18 103/61 98 Nasal Cannula 2.0 10/19/17 05:00 61 17 112/67 97 Nasal Cannula 2.0 10/19/17 04:00 98.5 66 18 113/67 98 Nasal Cannula 2.0 98.5 10/19/17 03:54 64 10/19/17 03:00 61 18 104/56 100 Nasal Cannula 2.0 10/19/17 02:00 50 17 87/44 99 Nasal Cannula 2.0 10/19/17 01:30 28 10/19/17 01:00 67 19 119/76 98 Nasal Cannula 2.0 10/19/17 00:04 98.5 71 20 130/73 99 Nasal Cannula 2.0 98.5 10/18/17 23:36 58 10/18/17 23:00 Nasal Cannula 2.0 28 10/18/17 23:00 56 18 100/60 97 Nasal Cannula 2.0 10/18/17 23:00 98 Nasal Cannula 2.0 28 10/18/17 22:00 57 18 95/40 98 Nasal Cannula 2.0 10/18/17 22:00 62 20 Nasal Cannula 2.0 28 10/18/17 21:00 63 18 122/72 99 Nasal Cannula 2.0 10/18/17 20:00 98.6 59 16 103/58 99 Nasal Cannula 2.0 98.6 10/18/17 19:57 60 10/18/17 19:00 62 16 99 Nasal Cannula 2.0 10/18/17 15:00 97.9 76 19 92/62 100 Nasal Cannula 2.0 97.9 10/18/17 14:45 77 19 88/61 100 Nasal Cannula 2.0 10/18/17 14:30 76 19 87/61 100 Nasal Cannula 2.0 10/18/17 14:15 75 20 86/62 100 Nasal Cannula 2.0 10/18/17 14:06 74 20 83/63 100 Simple Mask 6.0 10/18/17 14:01 71 19 85/62 100 Simple Mask 6.0 10/18/17 13:56 97.9 72 18 82/55 100 Simple Mask 6.0 97.9 10/18/17 10:54 98.1 70 18 109/68 97 Room Air 98.1 Intake and Output 10/18/17 10/19/17 19:00 07:00 Intake Total 120 ml 1750 ml Output Total 1000 ml Balance 120 ml 750 ml Intake Oral 20 ml 630 ml IV Total 100 ml 1120 ml Output Urine Total 1000 ml # Voids 1 # Bowel Movements 1 Laboratory Tests 10/18/17 18:45: White Blood Count 13.0H, Red Blood Count 3.67L, Hemoglobin 12.3, Hematocrit 35.4L, Mean Corpuscular Volume 96, Mean Corpuscular Hemoglobin 33.5H, Mean Corpuscular Hemoglobin Concent 34.7, Red Cell Distribution Width 11.0L, Platelet Count 175, Mean Platelet Volume 8.1, Neutrophils (%) (Auto) 61.1, Lymphocytes (%) (Auto) 30.2, Monocytes (%) (Auto) 7.2, Eosinophils (%) (Auto) 1.0, Basophils (%) (Auto) 0.6, Sodium Level 141, Potassium Level 4.2, Chloride Level 107, Carbon Dioxide Level 29, Anion Gap 5, Blood Urea Nitrogen 17, Creatinine 1.1, Estimat Glomerular Filtration Rate , Glucose Level 78, Calcium Level 8.3L, Total Bilirubin 0.2, Aspartate Amino Transf (AST/SGOT) 24, Alanine Aminotransferase (ALT/SGPT) 24, Alkaline Phosphatase 58, Troponin I 1.506H, Total Protein 5.9L, Albumin 3.0L, Globulin 2.9, Albumin/Globulin Ratio 1.0, Thyroid Stimulating Hormone (TSH) 0.940, Cortisol AM Sample [Pending] 10/19/17 01:00: Troponin I 1.094H 10/19/17 04:05: Sodium Level 142, Potassium Level 3.8, Chloride Level 107, Carbon Dioxide Level 29, Anion Gap 6, Blood Urea Nitrogen 15, Creatinine 1.1, Estimat Glomerular Filtration Rate , Glucose Level 95, Calcium Level 8.0L, Total Bilirubin 0.2, Aspartate Amino Transf (AST/SGOT) 18, Alanine Aminotransferase (ALT/SGPT) 21, Alkaline Phosphatase 55, Troponin I 0.711H, Total Protein 5.6L, Albumin 2.6L, Globulin 3.0, Albumin/Globulin Ratio 0.9L, Magnesium Level 1.8, Total Creatine Kinase 43, Pro-B-Type Natriuretic Peptide 1197H, Triglycerides Level 155H, Cholesterol Level 159, LDL Cholesterol 112H, HDL Cholesterol 36L, Cholesterol/ HDL Ratio 4.4 10/19/17 09:27: White Blood Count [Pending], Red Blood Count [Pending], Hemoglobin [Pending], Hematocrit [Pending], Mean Corpuscular Volume [Pending], Mean Corpuscular Hemoglobin [Pending], Mean Corpuscular Hemoglobin Concent [Pending], Red Cell Distribution Width [Pending], Platelet Count [Pending], Mean Platelet Volume [ Pending], Neutrophils (%) (Auto) [Pending], Lymphocytes (%) (Auto) [Pending], Monocytes (%) (Auto) [Pending], Eosinophils (%) (Auto) [Pending], Basophils (%) (Auto) [Pending], Troponin I [Pending] Height (Feet): 5 Height (Inches): 6.00 Weight (Pounds): 184 General Appearance: WD/WN, alert Neck: supple Cardiovascular: regular rhythm Respiratory/Chest: lungs clear Abdomen: normal bowel sounds, non tender, soft, no organomegaly Edema: no edema noted Arm (L), no edema noted Arm (R), no edema noted Leg (L), no edema noted Leg (R), no edema noted Pedal (L), no edema noted Pedal (R), no edema noted Generalized Neurologic: food and beverage associate II-XII grossly normal, alert SANDRINE SHETH Oct 19, 2017 09:49
[2017-10-19 09:51] LABS: EOSINOPHILS % (AUTO) 1.2 % (0.0-3.0); HEMATOCRIT 34.6 % (37.0-47.0); HEMOGLOBIN 11.9 G/DL (12.0-16.0); LYMPHOCYTES % (AUTO) 32.3 % (20.0-45.0); MEAN CORPUSCULAR VOLUME 98 FL (80-99); MONOCYTES % (AUTO) 6.2 % (1.0-10.0); NEUTROPHILS % (AUTO) 59.3 % (45.0-75.0); PLATELET COUNT 157 K/UL (150-450); RED BLOOD COUNT 3.54 M/UL (4.20-5.40); RED CELL DISTRIBUTION WIDTH 11.4 % (11.6-14.8); WHITE BLOOD COUNT 9.2 K/UL (4.8-10.8)
--- NOTE | 2017-10-19 15:29 | Cardiology Progress Note ---
Assessment/Plan Assessment/Plan 1. NSTEMI 2. reported vt and Bradycardia once sedated for surgery (surgery not performed ) 3. History of SVT as well as questionable atrial fibrillation. 4. History of pericarditis with negative pericardial effusion on a recent echo. 5. History of hyperlipidemia. 6. History of hypertension. 7. History of sleep apnea. 8. Low-voltage QRS complexes. 9. Asymptomatic hypotension. bp improved trop yest peaked ekg now t inversion in v4-5 adn 1 and avvl trop down trending nwo ecotrin start ed yest statin started yest hr has improved will start on BB ntg prn will need cath d/w dr rico will call [facility] for transfer , if nto beds available will need another facility for cath i have d/s pt and dtr and rn heparin if has recurrent cp echo note will try to review images hemodynamically ahs been stable no sig arrhythmias ok to sdu Subjective Cardiovascular: Reports: chest pain - soem earlier to day she say has been havign for the pat 2 weeks but her cars though was not heart related ; Denies: lightheadedness, palpitations Respiratory: Denies: orthopnea, shortness of breath Gastrointestinal/Abdominal: Denies: abdominal pain Genitourinary: Denies: burning Subjective feel anxious want med to calm her down Objective Last 24 Hour Vital Signs Date Time Temp Pulse Resp B/P (MAP) Pulse Ox O2 Delivery O2 Flow Rate FiO2 10/19/17 14:00 72 16 118/67 98 Nasal Cannula 2.0 10/19/17 13:00 98.6 70 15 136/73 99 Nasal Cannula 2.0 98.6 10/19/17 12:00 69 18 131/74 98 Nasal Cannula 2.0 10/19/17 12:00 87 10/19/17 11:00 62 16 115/73 98 Nasal Cannula 2.0 10/19/17 10:00 63 19 101/47 99 Nasal Cannula 2.0 10/19/17 09:00 63 19 108/62 99 Nasal Cannula 2.0 10/19/17 08:09 Nasal Cannula 2.0 28 10/19/17 08:09 99 Nasal Cannula 2.0 28 10/19/17 08:09 70 12 Nasal Cannula 2.0 28 10/19/17 08:00 98.7 76 15 113/70 98 Nasal Cannula 2.0 98.7 10/19/17 08:00 61 10/19/17 07:00 57 21 113/70 99 Nasal Cannula 2.0 10/19/17 06:00 53 18 103/61 98 Nasal Cannula 2.0 10/19/17 05:00 61 17 112/67 97 Nasal Cannula 2.0 10/19/17 04:00 98.5 66 18 113/67 98 Nasal Cannula 2.0 98.5 10/19/17 03:54 64 10/19/17 03:00 61 18 104/56 100 Nasal Cannula 2.0 10/19/17 02:00 50 17 87/44 99 Nasal Cannula 2.0 10/19/17 01:30 28 10/19/17 01:00 67 19 119/76 98 Nasal Cannula 2.0 10/19/17 00:04 98.5 71 20 130/73 99 Nasal Cannula 2.0 98.5 10/18/17 23:36 58 10/18/17 23:00 Nasal Cannula 2.0 28 10/18/17 23:00 56 18 100/60 97 Nasal Cannula 2.0 10/18/17 23:00 98 Nasal Cannula 2.0 28 10/18/17 22:00 57 18 95/40 98 Nasal Cannula 2.0 10/18/17 22:00 62 20 Nasal Cannula 2.0 28 10/18/17 21:00 63 18 122/72 99 Nasal Cannula 2.0 10/18/17 20:00 98.6 59 16 103/58 99 Nasal Cannula 2.0 98.6 10/18/17 19:57 60 10/18/17 19:00 62 16 99 Nasal Cannula 2.0 General Appearance: no apparent distress, alert Neck: supple Cardiovascular: normal rate, regular rhythm Respiratory/Chest: lungs clear, normal breath sounds Abdomen: normal bowel sounds, non tender, soft Extremities: no swelling Intake and Output 10/18/17 10/19/17 19:00 07:00 Intake Total 120 ml 1750 ml Output Total 1000 ml Balance 120 ml 750 ml Intake Oral 20 ml 630 ml IV Total 100 ml 1120 ml Output Urine Total 1000 ml # Voids 1 # Bowel Movements 1 Laboratory Tests Test 10/18/17 18:45 10/19/17 01:00 10/19/17 04:05 10/19/17 09:27 White Blood Count 13.0 K/UL (4.8-10.8) H 9.2 K/UL (4.8-10.8) Red Blood Count 3.67 M/UL (4.20-5.40) L 3.54 M/UL (4.20-5.40) L Hemoglobin 12.3 G/DL (12.0-16.0) 11.9 G/DL (12.0-16.0) L Hematocrit 35.4 % (37.0-47.0) L 34.6 % (37.0-47.0) L Mean Corpuscular Volume 96 FL (80-99) 98 FL (80-99) Mean Corpuscular Hemoglobin 33.5 PG (27.0-31.0) H 33.7 PG (27.0-31.0) H Mean Corpuscular Hemoglobin Concent 34.7 G/DL (32.0-36.0) 34.5 G/DL (32.0-36.0) Red Cell Distribution Width 11.0 % (11.6-14.8) L 11.4 % (11.6-14.8) L Platelet Count 175 K/UL (150-450) 157 K/UL (150-450) Mean Platelet Volume 8.1 FL (6.5-10.1) 8.2 FL (6.5-10.1) Neutrophils (%) (Auto) 61.1 % (45.0-75.0) 59.3 % (45.0-75.0) Lymphocytes (%) (Auto) 30.2 % (20.0-45.0) 32.3 % (20.0-45.0) Monocytes (%) (Auto) 7.2 % (1.0-10.0) 6.2 % (1.0-10.0) Eosinophils (%) (Auto) 1.0 % (0.0-3.0) 1.2 % (0.0-3.0) Basophils (%) (Auto) 0.6 % (0.0-2.0) 1.0 % (0.0-2.0) Sodium Level 141 MMOL/L (136-145) 142 MMOL/L (136-145) Potassium Level 4.2 MMOL/L (3.5-5.1) 3.8 MMOL/L (3.5-5.1) Chloride Level 107 MMOL/L (98-107) 107 MMOL/L (98-107) Carbon Dioxide Level 29 MMOL/L (21-32) 29 MMOL/L (21-32) Anion Gap 5 mmol/L (5-15) 6 mmol/L (5-15) Blood Urea Nitrogen 17 mg/dL (7-18) 15 mg/dL (7-18) Creatinine 1.1 MG/DL (0.55-1.30) 1.1 MG/DL (0.55-1.30) Estimat Glomerular Filtration Rate mL/min (>60) mL/min (>60) Glucose Level 78 MG/DL (74-106) 95 MG/DL (74-106) Calcium Level 8.3 MG/DL (8.5-10.1) L 8.0 MG/DL (8.5-10.1) L Total Bilirubin 0.2 MG/DL (0.2-1.0) 0.2 MG/DL (0.2-1.0) Aspartate Amino Transf (AST/SGOT) 24 U/L (15-37) 18 U/L (15-37) Alanine Aminotransferase (ALT/SGPT) 24 U/L (12-78) 21 U/L (12-78) Alkaline Phosphatase 58 U/L (46-116) 55 U/L (46-116) Troponin I 1.506 ng/mL (0.000-0.056) 1.094 ng/mL (0.000-0.056) 0.711 ng/mL (0.000-0.056) 0.415 ng/mL (0.000-0.056) Total Protein 5.9 G/DL (6.4-8.2) L 5.6 G/DL (6.4-8.2) L Albumin 3.0 G/DL (3.4-5.0) L 2.6 G/DL (3.4-5.0) L Globulin 2.9 g/dL 3.0 g/dL Albumin/Globulin Ratio 1.0 (1.0-2.7) 0.9 (1.0-2.7) L Thyroid Stimulating Hormone (TSH) 0.940 uiU/mL (0.358-3.740) Cortisol AM Sample Pending Magnesium Level 1.8 MG/DL (1.8-2.4) Total Creatine Kinase 43 U/L (26-308) Pro-B-Type Natriuretic Peptide 1197 pg/mL (0-125) H Triglycerides Level 155 MG/DL (30-150) H Cholesterol Level 159 MG/DL (< 200) LDL Cholesterol 112 mg/dL (<100) H HDL Cholesterol 36 MG/DL (40-60) L Cholesterol/HDL Ratio 4.4 (3.3-4.4) MARCELLO NICHOLSON Oct 19, 2017 15:29
[2017-10-19] MEDS ORDERED: ALPRAZolam 0.25mg tab ORAL PRN (15:30)
[2017-10-19] MEDS ORDERED: Metoprolol 25mg tab ORAL SCH (16:00)
--- NOTE | 2017-10-19 19:30 | Progress Note ---
DATE: 10/19/2017 MEDICATIONS: Medication administration record reviewed. Medications include IV fluids, subcutaneous heparin, Lipitor, trazodone, Colace, Protonix, baby aspirin, Synthroid, Aricept. P.r.n. medications include Flexeril and morphine. OBJECTIVE: VITAL SIGNS: Afebrile, pulse 63 with the lower 53 earlier this morning, respirations 19, blood pressure 101/47, and oxygen saturation 99% on supplemental oxygen. LABORATORY STUDIES: From this morning, 10/19/2016 shows white count 9, hematocrit 35, platelets 160. Sodium 142, potassium 3.8, chloride 107, bicarb 29, BUN 16, creatinine 1.1, glucose 95. Magnesium 1.8. Total bilirubin 0.2. AST 18, ALT 21, alkaline phosphatase 55. Total creatine kinase 43. BNP of 1200. Troponin 1.5, 1.1, 0.7, 0.4. The patient was scheduled for right total knee arthroplasty yesterday with Dr. Macias. I had made multiple recommendations to help for pain control postoperatively. As it turned out, the patient has severe bradycardia episodes before surgery was started and the surgical case was canceled with the patient being transferred to intensive care unit. I spoke with incentive care unit nurse this morning. Dr. Hankins is following the patient. The patient had multiple troponin levels drawn. I would remind the medical team that this patient uses high doses of marijuana on a regular basis. The patient admits to smoking at least 4 marijuana joints everyday on a chronic basis. Dr. Hankins currently is ordering her medications. Jeffy Pelaez M.D. DR: KJ JOB#: [id number] CC:
[2017-10-19] MEDS: Donepezil 5mg Tab ORAL SCH (20:27)
[2017-10-19] MEDS: Atorvastatin 20mg tab ORAL SCH (20:28)
[2017-10-19] MEDS ORDERED: TraZODone 100mg tab ORAL SCH (21:00)
[2017-10-20] VITALS: BP 128/76
[2017-10-20] MEDS: ALPRAZolam 0.25mg tab ORAL PRN ×2 (00:55→13:52)
[2017-10-20 04:00] VITALS: BP 142/84
[2017-10-20 08:00] VITALS: BP 125/76
--- NOTE | 2017-10-20 08:32 | General Progress Note ---
Assessment/Plan Problem List: (1) Knee arthropathy ICD Codes: M12.9 - Arthropathy, unspecified SNOMED: 558246513 (2) Osteoarthritis of left knee ICD Codes: M17.9 - Osteoarthritis of knee, unspecified SNOMED: 160955353 (3) Arrhythmia ICD Codes: I49.9 - Arrhythmia SNOMED: 579932240 Status: stable Assessment/Plan antiplt rx monitor for bradycardia dvt prophylaxis pain rx cards follow add ntg on waiting list for bed at [facility] Subjective ROS Limited/Unobtainable: No Constitutional: Reports: malaise, weakness HEENT: Reports: no symptoms Cardiovascular: Reports: chest pain Respiratory: Reports: no symptoms Gastrointestinal/Abdominal: Reports: no symptoms Genitourinary: Reports: no symptoms Neurologic/Psychiatric: Reports: no symptoms Endocrine: Reports: no symptoms Hematologic/Lymphatic: Reports: no symptoms Allergies: Coded Allergies: LINAGLIPTIN (Verified Allergy, Intermediate, RASH, 08/16/16) SULFA (SULFONAMIDE ANTIBIOTICS) (Verified Allergy, Intermediate, RASH, ) ADHESIVE TAPE (Verified Adverse Reaction, Severe, 08/17/16) THIN SKIN DUE TO HUMIRA SIDE EFFECT All Systems: reviewed and negative except above Subjective noted some chest tightness last night. Objective Last 24 Hour Vital Signs Date Time Temp Pulse Resp B/P (MAP) Pulse Ox O2 Delivery O2 Flow Rate FiO2 10/20/17 04:00 98.2 72 20 142/84 99 Room Air 98.2 10/20/17 03:28 80 10/20/17 00:00 98.2 77 20 128/76 98 Nasal Cannula 2.0 98.2 10/19/17 23:51 75 10/19/17 21:00 76 12 120/78 99 Nasal Cannula 2.0 10/19/17 20:41 61 10/19/17 20:00 75 10/19/17 20:00 98.0 77 12 120/78 99 Nasal Cannula 2.0 98.0 10/19/17 19:30 Nasal Cannula 2.0 28 10/19/17 19:30 72 20 Nasal Cannula 2.0 28 10/19/17 19:30 98 Nasal Cannula 2.0 28 10/19/17 19:00 65 16 111/73 99 Nasal Cannula 2.0 10/19/17 18:00 76 16 106/73 99 Nasal Cannula 2.0 10/19/17 17:05 99 116/97 10/19/17 17:00 79 14 115/86 99 Nasal Cannula 2.0 10/19/17 16:00 76 10/19/17 16:00 98.4 72 17 116/97 99 Nasal Cannula 2.0 98.4 10/19/17 15:00 72 18 116/82 99 Nasal Cannula 2.0 10/19/17 14:00 72 16 118/67 98 Nasal Cannula 2.0 10/19/17 13:00 98.6 70 15 136/73 99 Nasal Cannula 2.0 98.6 10/19/17 12:00 69 18 131/74 98 Nasal Cannula 2.0 10/19/17 12:00 87 10/19/17 11:00 62 16 115/73 98 Nasal Cannula 2.0 10/19/17 10:00 63 19 101/47 99 Nasal Cannula 2.0 10/19/17 09:00 63 19 108/62 99 Nasal Cannula 2.0 Intake and Output 10/19/17 10/20/17 19:00 07:00 Intake Total 2190 ml 1330 ml Balance 2190 ml 1330 ml Intake Oral 990 ml 230 ml IV Total 1200 ml 1100 ml # Voids 4 5 # Bowel Movements 1 Laboratory Tests 10/19/17 09:27: White Blood Count 9.2, Red Blood Count 3.54L, Hemoglobin 11.9L, Hematocrit 34.6L , Mean Corpuscular Volume 98, Mean Corpuscular Hemoglobin 33.7H, Mean Corpuscular Hemoglobin Concent 34.5, Red Cell Distribution Width 11.4L, Platelet Count 157, Mean Platelet Volume 8.2, Neutrophils (%) (Auto) 59.3, Lymphocytes (%) (Auto) 32.3, Monocytes (%) (Auto) 6.2, Eosinophils (%) (Auto) 1.2, Basophils (%) (Auto) 1.0, Troponin I 0.415H 10/19/17 15:50: Troponin I 0.439H 10/20/17 03:30: Troponin I 0.236H Height (Feet): 5 Height (Inches): 6.00 Weight (Pounds): 192 General Appearance: WD/WN, alert Neck: supple Cardiovascular: regular rhythm Respiratory/Chest: chest wall non-tender, lungs clear, normal breath sounds Abdomen: normal bowel sounds, non tender, soft, no organomegaly Edema: no edema noted Arm (L), no edema noted Arm (R), no edema noted Leg (L), no edema noted Leg (R), no edema noted Pedal (L), no edema noted Pedal (R), no edema noted Generalized SANDRINE SHETH Oct 20, 2017 08:32
[2017-10-20] MEDS: Aspirin Baby 81mg ORAL SCH (09:00)
[2017-10-20] MEDS: Metoprolol 25mg tab ORAL SCH ×2 (09:00→20:45)
[2017-10-20] MEDS: Docusate 250mg cap ORAL SCH ×2 (09:00→17:31)
[2017-10-20] MEDS: Lactobacillus-GG tablet ORAL SCH ×2 (09:00→17:31)
[2017-10-20] MEDS: Morphine Sulfate 2mg/ml Inj IVP PRN (09:01)
[2017-10-20] MEDS: Heparin 5000 units/ml inj SUBQ SCH ×2 (09:02→20:46)
[2017-10-20 12:00] VITALS: BP 138/91
--- NOTE | 2017-10-20 12:00 | Progress Note ---
DATE: 10/20/2017 ACUTE PAIN MANAGEMENT PHYSICIAN PROGRESS NOTE VITAL SIGNS: Afebrile, pulse 81, respirations 20, blood pressure 142/84, oxygen saturation 99% on room air. LABORATORY DATA: Laboratory study shows decreasing but still positive troponin levels over the past 24 hours. MEDICATIONS: Medication administration record reviewed. Medications include IV fluids, subcutaneous heparin, Lipitor, trazodone, Colace, baby aspirin, Protonix, Synthroid, Lopressor, Aricept. P.r.n. medications include Xanax, Flexeril, morphine. The casting molder, Dr. Hankins transferred the patient from the intensive care unit to the step-down unit to room [facility]. The patient has been alternating p.r.n. doses of Xanax with IV morphine. She has Flexeril available and I would recommend using Marinol as this patient smokes marijuana heavily at home. Transfer to [facility] for cardiac catheterization is pending per Cardiology. Jeffy Pelaez M.D. DR: Mireya JOB#: [id number] CC:
--- NOTE | 2017-10-20 13:54 | Cardiology Progress Note ---
Assessment/Plan Assessment/Plan 1. NSTEMI 2. reported vt and Bradycardia once sedated for surgery (surgery not performed ) 3. History of SVT as well as questionable atrial fibrillation. 4. History of pericarditis with negative pericardial effusion on a recent echo. 5. History of hyperlipidemia. 6. History of hypertension. 7. History of sleep apnea. 8. Low-voltage QRS complexes. 9. Asymptomatic hypotension. bp improved trop yest peaked ekg now t inversion in v4-5 adn 1 and avvl trop down trending nwo ecotrin start ed yest statin started yest hr has improved will start on BB ntg prn will need cath d/w dr rico will call [facility] for transfer , if nto beds available will need another facility for cath she did have soem intermittetn right sided cp that would last 5-6 second but recurrent over a 5 min period none now heparin if has recurrent cp suggestive of angina echo revwied there id hypokin of mid to distal septum and septum hemodynamically remains stable no sig arrhythmias Subjective Cardiovascular: Reports: chest pain - righ sided pain last 5 second recurrent over a 5 min period of time earlier to day nown now ; Denies: lightheadedness, palpitations Respiratory: Denies: shortness of breath Gastrointestinal/Abdominal: Denies: abdominal pain Genitourinary: Denies: burning Subjective anxiety better Objective Last 24 Hour Vital Signs Date Time Temp Pulse Resp B/P (MAP) Pulse Ox O2 Delivery O2 Flow Rate FiO2 10/20/17 12:00 74 10/20/17 12:00 98.4 88 20 138/91 99 Room Air 98.4 10/20/17 09:01 98.2 10/20/17 09:00 81 142/84 10/20/17 08:00 89 10/20/17 08:00 97.5 65 20 125/76 99 Room Air 97.5 10/20/17 04:00 98.2 72 20 142/84 99 Room Air 98.2 10/20/17 03:28 80 10/20/17 00:00 98.2 77 20 128/76 98 Nasal Cannula 2.0 98.2 10/19/17 23:51 75 10/19/17 21:00 76 12 120/78 99 Nasal Cannula 2.0 10/19/17 20:41 61 10/19/17 20:00 75 10/19/17 20:00 98.0 77 12 120/78 99 Nasal Cannula 2.0 98.0 10/19/17 19:30 Nasal Cannula 2.0 28 10/19/17 19:30 72 20 Nasal Cannula 2.0 28 10/19/17 19:30 98 Nasal Cannula 2.0 28 10/19/17 19:00 65 16 111/73 99 Nasal Cannula 2.0 10/19/17 18:00 76 16 106/73 99 Nasal Cannula 2.0 10/19/17 17:05 99 116/97 10/19/17 17:00 79 14 115/86 99 Nasal Cannula 2.0 10/19/17 16:00 76 10/19/17 16:00 98.4 72 17 116/97 99 Nasal Cannula 2.0 98.4 10/19/17 15:00 72 18 116/82 99 Nasal Cannula 2.0 10/19/17 14:00 72 16 118/67 98 Nasal Cannula 2.0 General Appearance: no apparent distress, alert Neck: supple Cardiovascular: normal rate, regular rhythm Respiratory/Chest: lungs clear, normal breath sounds Abdomen: normal bowel sounds, non tender, soft Extremities: no swelling Intake and Output 10/19/17 10/20/17 19:00 07:00 Intake Total 2190 ml 1330 ml Balance 2190 ml 1330 ml Intake Oral 990 ml 230 ml IV Total 1200 ml 1100 ml # Voids 4 5 # Bowel Movements 1 Laboratory Tests Test 10/19/17 15:50 10/20/17 03:30 Troponin I 0.439 ng/mL (0.000-0.056) 0.236 ng/mL (0.000-0.056) Microbiology Date/Time Source Procedure Growth Status 10/18/17 11:20 Nasal Nares MRSA Culture - Final NO METHICILLIN RESISTANT STAPH AUREUS... Complete MARCELLO NICHOLSON Oct 20, 2017 13:54
[2017-10-20 16:00] VITALS: BP 101/60
[2017-10-20 20:00] VITALS: BP 107/65
[2017-10-20] MEDS: Atorvastatin 20mg tab ORAL SCH (20:44)
[2017-10-20] MEDS: TraZODone 100mg tab ORAL SCH (20:44)
[2017-10-20] MEDS: Donepezil 5mg Tab ORAL SCH (20:44)
[2017-10-20] MEDS ORDERED: Cyclobenzaprine 10mg Tab ORAL PRN (21:00)
[2017-10-21 04:00] VITALS: BP 145/88
[2017-10-21] MEDS: ALPRAZolam 0.25mg tab ORAL PRN ×2 (04:04→12:39)
[2017-10-21 04:42] LABS: BASOPHILS % (AUTO) 0.6 % (0.0-2.0); EOSINOPHILS % (AUTO) 1.5 % (0.0-3.0); HEMATOCRIT 36.1 % (37.0-47.0); HEMOGLOBIN 12.8 G/DL (12.0-16.0); LYMPHOCYTES % (AUTO) 27.4 % (20.0-45.0); MEAN CORPUSCULAR VOLUME 95 FL (80-99); MONOCYTES % (AUTO) 9.4 % (1.0-10.0); NEUTROPHILS % (AUTO) 61.1 % (45.0-75.0); PLATELET COUNT 145 K/UL (150-450); RED BLOOD COUNT 3.78 M/UL (4.20-5.40); RED CELL DISTRIBUTION WIDTH 11.5 % (11.6-14.8); WHITE BLOOD COUNT 8.2 K/UL (4.8-10.8)
[2017-10-21 05:18] LABS: ALANINE AMINOTRANSFERASE 18 U/L (12-78); ALBUMIN 2.7 G/DL (3.4-5.0); ALBUMIN/GLOBULIN RATIO 0.8 (1.0-2.7); ALKALINE PHOSPHATASE 55 U/L (46-116); ANION GAP 8 mmol/L (5-15); ASPARTATE AMINO TRANSFERASE 16 U/L (15-37); BILIRUBIN,TOTAL 0.4 MG/DL (0.2-1.0); BLOOD UREA NITROGEN 8 mg/dL (7-18); CALCIUM 8.4 MG/DL (8.5-10.1); CARBON DIOXIDE 27 MMOL/L (21-32); CHLORIDE 107 MMOL/L (98-107); POTASSIUM 3.6 MMOL/L (3.5-5.1); SODIUM 142 MMOL/L (136-145)
[2017-10-21 07:40] VITALS: BP 158/95
[2017-10-21] MEDS: Morphine Sulfate 2mg/ml Inj IVP PRN ×3 (07:43→17:34)
[2017-10-21] MEDS ORDERED: Nitroglycerin Subl 0.4mg tab SL PRN ×2 (08:00→18:00)
--- NOTE | 2017-10-21 08:01 | General Progress Note ---
Assessment/Plan Problem List: (1) Knee arthropathy ICD Codes: M12.9 - Arthropathy, unspecified SNOMED: 875904610 (2) Osteoarthritis of left knee ICD Codes: M17.9 - Osteoarthritis of knee, unspecified SNOMED: 695904967 (3) Arrhythmia ICD Codes: I49.9 - Arrhythmia SNOMED: 074166851 Status: not improved Assessment/Plan antiplt rx monitor for bradycardia dvt prophylaxis pain rx cards follow add ntg repeat troponin cards follow up on waiting list for bed at [facility] Subjective ROS Limited/Unobtainable: No Constitutional: Reports: malaise, weakness HEENT: Reports: no symptoms Cardiovascular: Reports: chest pain Respiratory: Reports: no symptoms Gastrointestinal/Abdominal: Reports: no symptoms Genitourinary: Reports: no symptoms Neurologic/Psychiatric: Reports: no symptoms Endocrine: Reports: no symptoms Hematologic/Lymphatic: Reports: no symptoms Allergies: Coded Allergies: LINAGLIPTIN (Verified Allergy, Intermediate, RASH, 08/16/16) SULFA (SULFONAMIDE ANTIBIOTICS) (Verified Allergy, Intermediate, RASH, ) ADHESIVE TAPE (Verified Adverse Reaction, Severe, 08/17/16) THIN SKIN DUE TO HUMIRA SIDE EFFECT All Systems: reviewed and negative except above Subjective noted some chest tightness this am. given morphine. ekg- no new changes. Objective Last 24 Hour Vital Signs Date Time Temp Pulse Resp B/P (MAP) Pulse Ox O2 Delivery O2 Flow Rate FiO2 10/21/17 04:11 100 10/21/17 04:00 97.9 90 21 145/88 96 Non-Rebreather 15.0 97.9 10/20/17 20:45 91 107/65 10/20/17 20:02 90 10/20/17 20:00 98.2 91 19 107/65 98 Room Air 98.2 10/20/17 16:00 97.9 84 22 101/60 96 Room Air 97.9 10/20/17 16:00 83 10/20/17 12:00 74 10/20/17 12:00 98.4 88 20 138/91 99 Room Air 98.4 10/20/17 09:01 98.2 10/20/17 09:00 81 142/84 Intake and Output 10/20/17 10/21/17 19:00 07:00 Intake Total 1000 ml 1200 ml Balance 1000 ml 1200 ml Intake Oral 300 ml IV Total 700 ml 1200 ml # Voids 3 2 # Bowel Movements 2 Laboratory Tests 10/21/17 03:50: White Blood Count 8.2, Red Blood Count 3.78L, Hemoglobin 12.8, Hematocrit 36.1L , Mean Corpuscular Volume 95, Mean Corpuscular Hemoglobin 33.9H, Mean Corpuscular Hemoglobin Concent 35.6, Red Cell Distribution Width 11.5L, Platelet Count 145L, Mean Platelet Volume 8.2, Neutrophils (%) (Auto) 61.1, Lymphocytes (%) (Auto) 27.4, Monocytes (%) (Auto) 9.4, Eosinophils (%) (Auto) 1.5, Basophils (%) (Auto) 0.6, Prothrombin Time 10.3, Prothromb Time International Ratio 1.0, Activated Partial Thromboplast Time 28, Sodium Level 142, Potassium Level 3.6, Chloride Level 107, Carbon Dioxide Level 27, Anion Gap 8, Blood Urea Nitrogen 8, Creatinine 1.0, Estimat Glomerular Filtration Rate , Glucose Level 92, Calcium Level 8.4L, Magnesium Level 1.7L, Total Bilirubin 0.4, Aspartate Amino Transf (AST/SGOT) 16, Alanine Aminotransferase ( ALT/SGPT) 18, Alkaline Phosphatase 55, Pro-B-Type Natriuretic Peptide 4180H, Total Protein 6.3L, Albumin 2.7L, Globulin 3.6, Albumin/Globulin Ratio 0.8L Height (Feet): 5 Height (Inches): 6.00 Weight (Pounds): 192 Objective General Appearance: WD/WN, alert Neck: supple Cardiovascular: regular rhythm Respiratory/Chest: chest wall non-tender, lungs clear, normal breath sounds Abdomen: normal bowel sounds, non tender, soft, no organomegaly Edema: no edema noted Arm (L), no edema noted Arm (R), no edema noted Leg (L), no edema noted Leg (R), no edema noted Pedal (L), no edema noted Pedal (R), no edema noted Generalized SANDRINE SHETH Oct 21, 2017 08:01
[2017-10-21 08:15] VITALS: BP 155/91
[2017-10-21] MEDS: Heparin 5000 units/ml inj SUBQ SCH (08:49)
[2017-10-21] MEDS: Metoprolol 25mg tab ORAL SCH (08:50)
[2017-10-21] MEDS: Lactobacillus-GG tablet ORAL SCH ×2 (08:50→17:34)
[2017-10-21] MEDS: Aspirin Baby 81mg ORAL SCH (08:51)
[2017-10-21] MEDS: Docusate 250mg cap ORAL SCH ×2 (08:53→17:49)
[2017-10-21] MEDS ORDERED: Dexamethasone 4mg/ml vial ONE (10:26)
[2017-10-21] MEDS ORDERED: Ketorolac 30mg Inj ONE (10:26)
--- NOTE | 2017-10-21 11:42 | Diagnostic Imaging Report ---
Indication: Chest pain Technique: One view of the chest Comparison: 10/10/2017 Findings: There is a small left-sided pleural effusion now present. The remainder of the lungs and pleural spaces are clear. The heart size is upper limit of normal. Impression: Left small pleural effusion No acute process otherwise
[2017-10-21 12:00] VITALS: BP 145/88
[2017-10-21 16:00] VITALS: BP 148/98
[2017-10-21] MEDS ORDERED: Heparin 5000 units/ml inj IV ONE (18:00)
--- NOTE | 2017-10-21 18:06 | Cardiology Progress Note ---
Assessment/Plan Assessment/Plan 1. NSTEMI 2. reported vt and Bradycardia once sedated for surgery (surgery not performed ) 3. History of SVT as well as questionable atrial fibrillation. 4. History of pericarditis with negative pericardial effusion on a recent echo. 5. History of hyperlipidemia. 6. History of hypertension. 7. History of sleep apnea. 8. Low-voltage QRS complexes. 9. Asymptomatic hypotension. she had had pain all day no one called me trop down trending up to midnite today pain imporves with morphine on ecotrin adn sttin ntg prn sl will need cath d/w dr rico will call [facility] for transfer , if nto beds available will need another facility for cath heparin will be started since has cp echo revwied yest there id hypokin of mid to distal septum and septum hemodynamically remains stable no sig arrhythmias repeat trop and ekg nwo ntp pp morphine may need transfer to another facility [facility] iw waitign for a bed her ekg earlier to t inversion in multiple lead ekg jsut performed now has reversion of the t inversion st change in lead v2 only min upward no other continguous lead changes willdo stat trop Subjective Cardiovascular: Reports: chest pain - dull ache all day to day nto a pain she has had before ; Denies: lightheadedness, palpitations Respiratory: Denies: shortness of breath Gastrointestinal/Abdominal: Denies: abdominal pain Genitourinary: Denies: burning Objective Last 24 Hour Vital Signs Date Time Temp Pulse Resp B/P (MAP) Pulse Ox O2 Delivery O2 Flow Rate FiO2 10/21/17 11:53 91 10/21/17 09:11 Nasal Cannula 2.0 28 10/21/17 09:11 99 Nasal Cannula 2.0 28 10/21/17 08:50 93 155/94 10/21/17 08:18 158/95 10/21/17 08:15 20 155/91 98 Nasal Cannula 2.0 10/21/17 07:57 90 10/21/17 07:40 95.9 94 22 158/95 98 Nasal Cannula 2.0 95.9 10/21/17 04:11 100 10/21/17 04:00 97.9 90 21 145/88 96 Non-Rebreather 15.0 97.9 10/20/17 20:45 91 107/65 3/25/18 20:02 90 10/20/17 20:00 98.2 91 19 107/65 98 Room Air 98.2 General Appearance: no apparent distress Neck: supple Cardiovascular: normal rate Respiratory/Chest: lungs clear, normal breath sounds Abdomen: normal bowel sounds, non tender, soft Extremities: no swelling Intake and Output 10/20/17 10/21/17 19:00 07:00 Intake Total 1000 ml 1200 ml Balance 1000 ml 1200 ml Intake Oral 300 ml IV Total 700 ml 1200 ml # Voids 3 2 # Bowel Movements 2 Laboratory Tests Test 10/21/17 03:50 10/21/17 12:20 White Blood Count 8.2 K/UL (4.8-10.8) Red Blood Count 3.78 M/UL (4.20-5.40) L Hemoglobin 12.8 G/DL (12.0-16.0) Hematocrit 36.1 % (37.0-47.0) L Mean Corpuscular Volume 95 FL (80-99) Mean Corpuscular Hemoglobin 33.9 PG (27.0-31.0) H Mean Corpuscular Hemoglobin Concent 35.6 G/DL (32.0-36.0) Red Cell Distribution Width 11.5 % (11.6-14.8) L Platelet Count 145 K/UL (150-450) L Mean Platelet Volume 8.2 FL (6.5-10.1) Neutrophils (%) (Auto) 61.1 % (45.0-75.0) Lymphocytes (%) (Auto) 27.4 % (20.0-45.0) Monocytes (%) (Auto) 9.4 % (1.0-10.0) Eosinophils (%) (Auto) 1.5 % (0.0-3.0) Basophils (%) (Auto) 0.6 % (0.0-2.0) Prothrombin Time 10.3 SEC (9.30-11.50) Prothromb Time International Ratio 1.0 (0.9-1.1) Activated Partial Thromboplast Time 28 SEC (23-33) Sodium Level 142 MMOL/L (136-145) Potassium Level 3.6 MMOL/L (3.5-5.1) Chloride Level 107 MMOL/L (98-107) Carbon Dioxide Level 27 MMOL/L (21-32) Anion Gap 8 mmol/L (5-15) Blood Urea Nitrogen 8 mg/dL (7-18) Creatinine 1.0 MG/DL (0.55-1.30) Estimat Glomerular Filtration Rate mL/min (>60) Glucose Level 92 MG/DL (74-106) Calcium Level 8.4 MG/DL (8.5-10.1) L Magnesium Level 1.7 MG/DL (1.8-2.4) L Total Bilirubin 0.4 MG/DL (0.2-1.0) Aspartate Amino Transf (AST/SGOT) 16 U/L (15-37) Alanine Aminotransferase (ALT/SGPT) 18 U/L (12-78) Alkaline Phosphatase 55 U/L (46-116) Troponin I 0.086 ng/mL (0.000-0.056) 0.075 ng/mL (0.000-0.056) Pro-B-Type Natriuretic Peptide 4180 pg/mL (0-125) H Total Protein 6.3 G/DL (6.4-8.2) L Albumin 2.7 G/DL (3.4-5.0) L Globulin 3.6 g/dL Albumin/Globulin Ratio 0.8 (1.0-2.7) L Microbiology Date/Time Source Procedure Growth Status 10/18/17 21:30 Nasal Nares MRSA Culture - Final NO METHICILLIN RESISTANT STAPH AUREUS... Complete 10/18/17 21:30 Rectum VRE Culture - Final NO VANCOMYCIN RESISTANT ENTEROCOCCUS ... Complete MARCELLO NICHOLSON Oct 21, 2017 18:06
[2017-10-21] MEDS: Nitroglycerin 2% oint pkt TOPIC SCH (18:29)
[2017-10-21] MEDS ORDERED: Guaifenesin/DM 10ml syrup ORAL PRN (18:30)
[2017-10-21 18:41] LABS: BASOPHILS % (AUTO) 0.7 % (0.0-2.0); EOSINOPHILS % (AUTO) 0.4 % (0.0-3.0); HEMATOCRIT 39.8 % (37.0-47.0); LYMPHOCYTES % (AUTO) 19.5 % (20.0-45.0); MEAN CORPUSCULAR VOLUME 95 FL (80-99); MONOCYTES % (AUTO) 10.9 % (1.0-10.0); NEUTROPHILS % (AUTO) 68.5 % (45.0-75.0); PLATELET COUNT 161 K/UL (150-450); RED BLOOD COUNT 4.19 M/UL (4.20-5.40); RED CELL DISTRIBUTION WIDTH 10.9 % (11.6-14.8); WHITE BLOOD COUNT 12.5 K/UL (4.8-10.8)
[2017-10-21] MEDS: Heparin 25,000u/D5W 500ml 500 ML IV SCH (18:44)
--- NOTE | 2017-10-21 19:03 | Cardiology Report ---
APPROVED REPORT EXAM: Two-dimensional and M-mode echocardiogram with Doppler and color Doppler. INDICATION Palpitations M-Mode DIMENSIONS IVSd0.9 (0.7-1.1cm)Left Atrium (MM)3.7 (1.6-4.0cm) LVDd5.2 (3.5-5.6cm)Aortic Root2.6 (2.0-3.7cm) PWd0.9 (0.7-1.1cm)Aortic Cusp Exc.1.8 (1.5-2.0cm) LVDs2.5 (2.5-4.0cm) PWs1.8 cm Normal left ventricular chamber size. Mid to apical anteroseptal wall, mid to apical lateral wall and apical cap hypokinesia, ischemic cardiomyopathy cannot be excluded. Left ventricular ejection fraction estimated to be 40 %. No evidence of left ventricular hypertrophy. Anterior Echo-free space, may be due to pericardial fat or effusion. All other cardiac chamber sizes are within normal limits. Focal aortic valve sclerosis with adequate cusp excursion. Thickened mitral valve leaflets with normal excursion. Mild mitral annulus and aortic root calcification. Pulmonic valve not well visualized. Normal tricuspid valve structure. IVC dilated at 2.1 cm with physiological collapse. A color flow and spectral Doppler study was performed and revealed: Trace aortic insufficiency. Trace mitral regurgitation. reduced left ventricular relaxation c/w impaired relaxation diastolic dysfunction. Trace tricuspid regurgitation. Tricuspid systolic velocities suggests peak right ventricular systolic pressure of 21 mmHg. No pulmonic regurgitation present.
--- NOTE | 2017-10-21 19:27 | Cardiology Report ---
APPROVED REPORT EKG Measurement Heart [id number] Possible LOCKETT block, type 1 Single APC Low voltage QRS Nonspecific T wave abnormality Abnormal ECG
[2017-10-21 20:00] VITALS: BP 125/89
[2017-10-21] MEDS: Metoprolol Tartrate 50mg tab ORAL SCH (20:46)
[2017-10-21] MEDS: TraZODone 100mg tab ORAL SCH (20:46)
[2017-10-21] MEDS: Donepezil 5mg Tab ORAL SCH (20:47)
[2017-10-21] MEDS: Atorvastatin 20mg tab ORAL SCH (20:47)
[2017-10-22] VITALS (7 sets, daily range): BP systolic 101–134; BP diastolic 46–72
[2017-10-22] MEDS: Nitroglycerin 2% oint pkt TOPIC SCH ×3 (06:43→18:10)
[2017-10-22 07:06] LABS: BASOPHILS % (AUTO) 0.9 % (0.0-2.0); EOSINOPHILS % (AUTO) 0.7 % (0.0-3.0); HEMATOCRIT 35.7 % (37.0-47.0); HEMOGLOBIN 12.7 G/DL (12.0-16.0); LYMPHOCYTES % (AUTO) 24.4 % (20.0-45.0); MEAN CORPUSCULAR VOLUME 96 FL (80-99); MONOCYTES % (AUTO) 10.7 % (1.0-10.0); NEUTROPHILS % (AUTO) 63.4 % (45.0-75.0); PLATELET COUNT 149 K/UL (150-450); RED BLOOD COUNT 3.72 M/UL (4.20-5.40); RED CELL DISTRIBUTION WIDTH 11.1 % (11.6-14.8); WHITE BLOOD COUNT 9.1 K/UL (4.8-10.8)
[2017-10-22 07:30] LABS: ALANINE AMINOTRANSFERASE 14 U/L (12-78); ALBUMIN 2.6 G/DL (3.4-5.0); ALBUMIN/GLOBULIN RATIO 0.7 (1.0-2.7); ALKALINE PHOSPHATASE 50 U/L (46-116); ANION GAP 6 mmol/L (5-15); ASPARTATE AMINO TRANSFERASE 16 U/L (15-37); BILIRUBIN,TOTAL 0.7 MG/DL (0.2-1.0); BLOOD UREA NITROGEN 9 mg/dL (7-18); CALCIUM 8.3 MG/DL (8.5-10.1); CARBON DIOXIDE 29 MMOL/L (21-32); CHLORIDE 104 MMOL/L (98-107); POTASSIUM 3.8 MMOL/L (3.5-5.1); SODIUM 139 MMOL/L (136-145)
[2017-10-22] MEDS: Aspirin Baby 81mg ORAL SCH (08:46)
[2017-10-22] MEDS: Lactobacillus-GG tablet ORAL SCH ×2 (08:46→18:11)
[2017-10-22] MEDS: Metoprolol Tartrate 50mg tab ORAL SCH ×2 (08:47→20:38)
[2017-10-22] MEDS: Docusate 250mg cap ORAL SCH ×2 (08:48→18:00)
--- NOTE | 2017-10-22 10:53 | General Progress Note ---
Assessment/Plan Problem List: (1) Knee arthropathy ICD Codes: M12.9 - Arthropathy, unspecified SNOMED: 786889607 (2) Osteoarthritis of left knee ICD Codes: M17.9 - Osteoarthritis of knee, unspecified SNOMED: 616278281 (3) Arrhythmia ICD Codes: I49.9 - Arrhythmia SNOMED: 953715681 Status: stable Assessment/Plan antiplt rx heparin drip monitor for bradycardia dvt prophylaxis pain rx cards follow up on waiting list for bed at [facility] Subjective ROS Limited/Unobtainable: No Constitutional: Reports: malaise, weakness HEENT: Reports: no symptoms Cardiovascular: Reports: chest pain Respiratory: Reports: no symptoms Gastrointestinal/Abdominal: Reports: no symptoms Genitourinary: Reports: no symptoms Neurologic/Psychiatric: Reports: no symptoms Endocrine: Reports: no symptoms Allergies: Coded Allergies: LINAGLIPTIN (Verified Allergy, Intermediate, RASH, 08/16/16) SULFA (SULFONAMIDE ANTIBIOTICS) (Verified Allergy, Intermediate, RASH, ) ADHESIVE TAPE (Verified Adverse Reaction, Severe, 08/17/16) THIN SKIN DUE TO HUMIRA SIDE EFFECT All Systems: reviewed and negative except above Subjective no complaints. pain better controlled. trop trending doen. on heparin drip. Objective Last 24 Hour Vital Signs Date Time Temp Pulse Resp B/P (MAP) Pulse Ox O2 Delivery O2 Flow Rate FiO2 10/22/17 08:47 96 105/60 10/22/17 08:00 98.1 96 20 105/60 96 Nasal Cannula 2.0 98.1 10/22/17 06:43 90/46 10/22/17 04:00 98.0 72 20 111/61 97 Nasal Cannula 2.0 98.0 10/22/17 04:00 98 10/22/17 00:00 98.6 60 20 103/46 97 Nasal Cannula 2.0 98.6 10/22/17 00:00 88 10/21/17 20:46 104 125/89 10/21/17 20:00 106 10/21/17 20:00 99.0 104 18 125/89 95 Nasal Cannula 2.0 99.0 10/21/17 18:29 148/98 10/21/17 16:00 97.7 101 20 148/98 96 Nasal Cannula 2.0 97.7 10/21/17 16:00 97 10/21/17 12:00 97.3 94 20 145/88 96 Nasal Cannula 2.0 97.3 10/21/17 11:53 91 Intake and Output 10/21/17 10/22/17 19:00 07:00 Intake Total 500 ml 251.148 ml Output Total 1500 ml Balance -1000 ml 251.148 ml Intake Oral 500 ml IV Total 251.148 ml Output Urine Total 1500 ml # Voids 6 3 # Bowel Movements 1 Laboratory Tests 10/21/17 12:20: Troponin I 0.075H 10/21/17 18:25: Troponin I 0.069H, White Blood Count 12.5#H, Red Blood Count 4.19L, Hemoglobin 14.0, Hematocrit 39.8, Mean Corpuscular Volume 95, Mean Corpuscular Hemoglobin 33.4H, Mean Corpuscular Hemoglobin Concent 35.1, Red Cell Distribution Width 10.9L, Platelet Count 161, Mean Platelet Volume 8.0, Neutrophils (%) (Auto) 68.5 , Lymphocytes (%) (Auto) 19.5L, Monocytes (%) (Auto) 10.9H, Eosinophils (%) ( Auto) 0.4, Basophils (%) (Auto) 0.7, Activated Partial Thromboplast Time 28 10/22/17 00:30: Activated Partial Thromboplast Time 83H 10/22/17 06:47: Troponin I 0.048, White Blood Count 9.1, Red Blood Count 3.72L, Hemoglobin 12.7 , Hematocrit 35.7L, Mean Corpuscular Volume 96, Mean Corpuscular Hemoglobin 34.3H, Mean Corpuscular Hemoglobin Concent 35.7, Red Cell Distribution Width 11.1L, Platelet Count 149L, Mean Platelet Volume 8.6, Neutrophils (%) (Auto) 63.4, Lymphocytes (%) (Auto) 24.4, Monocytes (%) (Auto) 10.7H, Eosinophils (%) ( Auto) 0.7, Basophils (%) (Auto) 0.9, Activated Partial Thromboplast Time 85H, Sodium Level 139, Potassium Level 3.8, Chloride Level 104, Carbon Dioxide Level 29, Anion Gap 6, Blood Urea Nitrogen 9, Creatinine 1.0, Estimat Glomerular Filtration Rate , Glucose Level 111H, Calcium Level 8.3L, Total Bilirubin 0.7, Aspartate Amino Transf (AST/SGOT) 16, Alanine Aminotransferase (ALT/SGPT) 14, Alkaline Phosphatase 50, Total Protein 6.1L, Albumin 2.6L, Globulin 3.5, Albumin /Globulin Ratio 0.7L Height (Feet): 5 Height (Inches): 4.00 Weight (Pounds): 165 Objective General Appearance: WD/WN, alert Neck: supple Cardiovascular: regular rhythm Respiratory/Chest: chest wall non-tender, lungs clear, normal breath sounds Abdomen: normal bowel sounds, non tender, soft, no organomegaly Edema: no edema noted Arm (L), no edema noted Arm (R), no edema noted Leg (L), no edema noted Leg (R), no edema noted Pedal (L), no edema noted Pedal (R), no edema noted Generalized SANDRINE SHETH Oct 22, 2017 10:53
[2017-10-22] MEDS ORDERED: Tubing IV Secondary IV ONE (15:49)
--- NOTE | 2017-10-22 16:36 | Cardiology Report ---
APPROVED REPORT EKG Measurement Heart [id number] [place] [id number] Sinus tachycardia Nonspecific T wave abnormality Abnormal ECG
--- NOTE | 2017-10-22 16:44 | Cardiology Progress Note ---
Assessment/Plan Assessment/Plan 1. NSTEMI 2. reported vt and Bradycardia once sedated for surgery (surgery not performed ) 3. History of SVT as well as questionable atrial fibrillation. 4. History of pericarditis with negative pericardial effusion on a recent echo. 5. History of hyperlipidemia. 6. History of hypertension. 7. History of sleep apnea. 8. Low-voltage QRS complexes. 9. Asymptomatic hypotension. she had had pain all day yest yet all trop down trending , this am was normal on ecotrin adn statin ntg prn sl will need cath d/w dr rico will call [facility] for transfer , if nto beds available will need another facility for cath heparin started yest due to persistent cp echo revwied there is hypokin of mid to distal septum and septum hemodynamically remains stable no sig arrhythmias ntp pp dilaudid may need transfer to another facility [facility] iw waitign for a bed she seem better to day s d/w tova rico adn [facility] transfer center Subjective Cardiovascular: Denies: chest pain, lightheadedness Respiratory: Denies: shortness of breath Gastrointestinal/Abdominal: Denies: abdominal pain Genitourinary: Denies: burning Subjective feels much better to day Objective Last 24 Hour Vital Signs Date Time Temp Pulse Resp B/P (MAP) Pulse Ox O2 Delivery O2 Flow Rate FiO2 10/22/17 12:00 84 10/22/17 11:37 124/72 10/22/17 11:35 98.4 84 20 124/72 96 Nasal Cannula 2.0 98.4 10/22/17 08:47 96 105/60 10/22/17 08:00 98.1 96 20 105/60 96 Nasal Cannula 2.0 98.1 10/22/17 06:43 90/46 10/22/17 04:00 98.0 72 20 111/61 97 Nasal Cannula 2.0 98.0 10/22/17 04:00 98 10/22/17 00:00 98.6 60 20 103/46 97 Nasal Cannula 2.0 98.6 10/22/17 00:00 88 10/21/17 20:46 104 125/89 10/21/17 20:00 106 10/21/17 20:00 99.0 104 18 125/89 95 Nasal Cannula 2.0 99.0 10/21/17 18:29 148/98 General Appearance: no apparent distress, alert Neck: supple Cardiovascular: normal rate, regular rhythm Respiratory/Chest: lungs clear, normal breath sounds Abdomen: normal bowel sounds, non tender, soft Extremities: no swelling Intake and Output 10/21/17 10/22/17 19:00 07:00 Intake Total 500 ml 251.148 ml Output Total 1500 ml Balance -1000 ml 251.148 ml Intake Oral 500 ml IV Total 251.148 ml Output Urine Total 1500 ml # Voids 6 3 # Bowel Movements 1 Laboratory Tests Test 10/21/17 18:25 10/22/17 00:30 10/22/17 06:47 White Blood Count 12.5 K/UL (4.8-10.8) #H 9.1 K/UL (4.8-10.8) Red Blood Count 4.19 M/UL (4.20-5.40) L 3.72 M/UL (4.20-5.40) L Hemoglobin 14.0 G/DL (12.0-16.0) 12.7 G/DL (12.0-16.0) Hematocrit 39.8 % (37.0-47.0) 35.7 % (37.0-47.0) L Mean Corpuscular Volume 95 FL (80-99) 96 FL (80-99) Mean Corpuscular Hemoglobin 33.4 PG (27.0-31.0) H 34.3 PG (27.0-31.0) H Mean Corpuscular Hemoglobin Concent 35.1 G/DL (32.0-36.0) 35.7 G/DL (32.0-36.0) Red Cell Distribution Width 10.9 % (11.6-14.8) L 11.1 % (11.6-14.8) L Platelet Count 161 K/UL (150-450) 149 K/UL (150-450) L Mean Platelet Volume 8.0 FL (6.5-10.1) 8.6 FL (6.5-10.1) Neutrophils (%) (Auto) 68.5 % (45.0-75.0) 63.4 % (45.0-75.0) Lymphocytes (%) (Auto) 19.5 % (20.0-45.0) L 24.4 % (20.0-45.0) Monocytes (%) (Auto) 10.9 % (1.0-10.0) H 10.7 % (1.0-10.0) H Eosinophils (%) (Auto) 0.4 % (0.0-3.0) 0.7 % (0.0-3.0) Basophils (%) (Auto) 0.7 % (0.0-2.0) 0.9 % (0.0-2.0) Activated Partial Thromboplast Time 28 SEC (23-33) 83 SEC (23-33) H 85 SEC (23-33) H Troponin I 0.069 ng/mL (0.000-0.056) 0.048 ng/mL (0.000-0.056) Sodium Level 139 MMOL/L (136-145) Potassium Level 3.8 MMOL/L (3.5-5.1) Chloride Level 104 MMOL/L (98-107) Carbon Dioxide Level 29 MMOL/L (21-32) Anion Gap 6 mmol/L (5-15) Blood Urea Nitrogen 9 mg/dL (7-18) Creatinine 1.0 MG/DL (0.55-1.30) Estimat Glomerular Filtration Rate mL/min (>60) Glucose Level 111 MG/DL (74-106) H Calcium Level 8.3 MG/DL (8.5-10.1) L Total Bilirubin 0.7 MG/DL (0.2-1.0) Aspartate Amino Transf (AST/SGOT) 16 U/L (15-37) Alanine Aminotransferase (ALT/SGPT) 14 U/L (12-78) Alkaline Phosphatase 50 U/L (46-116) Total Protein 6.1 G/DL (6.4-8.2) L Albumin 2.6 G/DL (3.4-5.0) L Globulin 3.5 g/dL Albumin/Globulin Ratio 0.7 (1.0-2.7) L MARCELLO NICHOLSON Oct 22, 2017 16:44
--- NOTE | 2017-10-22 17:15 | Operative Note - Dictated ---
DATE OF OPERATION: 10/18/2017 SURGEON: Stiven Macias M.D. OPERATIVE NOTE: The patient is due to have a right knee replacement. She was consented. On induction of anesthesia, she developed bradycardia and then tachycardia and ventricular tachycardia. Prior to any cuts being made or prior to the time-out, the operation was canceled. The patient was transferred up to ICU under the guidance of Dr. Jarred Hankins. Dr. Jarred Hankins will continue care and treatment accordingly. I will follow up with the patient on an outpatient setting once she is cardiac cleared in order to do the procedure. Stiven Macias M.D. DR: JOANN JOB#: [id number] CC:
[2017-10-22] MEDS: Heparin 25,000u/D5W 500ml 500 ML IV SCH (19:32)
[2017-10-22] MEDS: Donepezil 5mg Tab ORAL SCH (20:37)
[2017-10-22] MEDS: Atorvastatin 20mg tab ORAL SCH (20:37)
[2017-10-22] MEDS: TraZODone 100mg tab ORAL SCH (20:38)
--- NOTE | 2017-10-24 14:11 | Discharge Summary ---
Discharge Summary Discharge Summary Discharge Summary DATE OF ADMISSION: 10/18/2017 DATE OF DISCHARGE: 10/22/2017 CONSULTANTS: 1. Dr. Jarred Hankins 2. Dr. Stiven Macias 3. Dr. Jeffy Pelaez BRIEF HOSPITAL COURSE: Patient is a 73-year-old female, who was admitted for right knee replacement, who was being started on general anesthesia apparently became bradycardic. The procedure was canceled and patient was transferred to intensive care unit for further evaluation. Patient was reported to have bradycardia at the rate of 58 and went in to ventricular tachycardia at a rate of 170. She had prior history of SVT and possible atrial fibrillation. She has medical history significant for diabetes mellitus, rheumatoid arthritis and sleep apnea. Cardiac troponins were monitored. EKG showed low voltage QRS complexes, no ST or T-wave abnormalities of any significant degree. She had an echocardiogram done that showed EF of 40% with mid to apical anteroseptal wall, mid to apical lateral wall and apical Hypokinesia, possible ischemic cardiomyopathy. There was trace aortic insufficiency, trace mitral regurgitation, reduced diastolic dysfunction , trace tricuspid regurgitation and PA pressure of 21. Troponin peaked to 1.5, she was given aspirin and was started on starting Lipitor, she developed chest pain and was eventually started on heparin drip. She was placed on the list for transfer to acute care hospital for a heart catheterization. She was eventually transferred to [facility], FINAL DIAGNOSES: 1. Non-ST elevated OK 2. Reported ventricular tachycardia and bradycardia 3. History of pericarditis with negative pericardial effusion 4. Hyperlipidemia 5. Hypertension 6. Sleep apnea 7. Asymptomatic hypotension 8. Right Knee arthropathy 9. Osteoarthritis of the left knee DISPOSITION: Patient was transferred to [facility]. I have been assigned to dictate discharge summary on this account, and I was not involved in the patient's management. Shima Kingston NP Oct 24, 2017 14:11
--- NOTE | 2017-10-24 19:17 | Cardiology Report ---
APPROVED REPORT EKG Measurement Heart [id number] [place] 188P67 [id number] Normal sinus rhythm Low voltage QRS T wave abnormality, consider anterolateral ischemia Abnormal ECG
== END 2017-10-22 21:40 | disposition short-term general hospital (02) | DRG 553 ==
LOC: SDSOVERFLO 10-18 10:04 → ICU 10-18 16:52 → 2W 10-19 21:21
DX: M17.11 Unilateral primary osteoarthritis, right knee (principal); I21.4 Non-ST elevation (NSTEMI) myocardial infarction; I47.2 Ventricular tachycardia; E03.9 Hypothyroidism, unspecified; E78.5 Hyperlipidemia, unspecified; R00.1 Bradycardia, unspecified; G47.30 Sleep apnea, unspecified; M06.9 Rheumatoid arthritis, unspecified; I11.9 Hypertensive heart disease without heart failure; Z88.2 Allergy status to sulfonamides; Z88.8 Allergy status to other drugs, medicaments and biological substances; Z82.49 Family history of ischemic heart disease and other diseases of the circulatory system; Z53.09 Procedure and treatment not carried out because of other contraindication; F12.90 Cannabis use, unspecified, uncomplicated
CPT/HCPCS: 36415; 71045; 71046; 80053; 80061; 82533; 82550; 83735; 83880; 84443; 84484; 85025; 85610; 85730; 86850; 86900; 86901; 86920; 87081; 93005; 93306; 93970; 94003; 94150; 94664; 94760; J0282; J2250; J2405

== ENCOUNTER 2018-05-14 05:34 | Inpatient (IN) | payer MEDICARE, MEDICAID ==
[~2018-05-14] VITALS: Ht 167.6 cm; Wt 89.8 kg
[2018-05-14] MEDS ORDERED: Bacitracin 50000 Units Vial ONE (06:30)
[2018-05-14] MEDS ORDERED: NeoSporin Gu Irrig 1ml Amp IRRIG ONE (06:30)
[2018-05-14 06:45] VITALS: BP 126/67
[2018-05-14] MEDS ORDERED: D5 1/2NS w/KCl 20mEq 1,000 ML IV SCH (07:07)
--- NOTE | 2018-05-14 07:07 | Pre-Procedure Note/Attestation ---
Pre-Procedure Note/Attestation Complete Prior to Procedure Planned Procedure: right Procedure Narrative: knee replacement Indications for Procedure Pre-Operative Diagnosis: knee athritis Attestation I attest that I discussed the nature of the procedure; its benefits; risks and complications; and alternatives (and the risks and benefits of such alternatives ), prior to the procedure, with the patient (or the patient's legal in store marketing representative). I attest that, if there was a reasonable possibility of needing a blood transfusion, the patient (or the patient's legal in store marketing representative) was given the [facility] standardized written summary, pursuant to the [place] Blood Safety Act ([place] Health and Safety Code # 1645, as amended). I attest that I re-evaluated the patient just prior to the surgery and that there has been no change in the patient's H&P, except as documented below: Stiven Macias MD May 14, 2018 07:07
[2018-05-14 07:13] LABS: BILIRUBIN, URINE NEGATIVE (NEGATIVE); COLOR,URINE PALE YELLOW; GLUCOSE, URINE (UA) NEGATIVE (NEGATIVE); KETONES,URINE NEGATIVE (NEGATIVE); LEUKOCYTE ESTERASE ,URINE 3+ (NEGATIVE); NITRITE,URINE NEGATIVE (NEGATIVE); PH,URINE 5 (4.5-8.0); PROTEIN,URINE NEGATIVE (NEGATIVE); UROBILINOGEN,URINE NORMAL MG/DL (0.0-1.0)
[2018-05-14] MEDS ORDERED: Morphine Sulfate 2mg/ml Inj IVP PRN ×2 (07:15)
[2018-05-14] MEDS ORDERED: HYDROcodone/Acetamin 7.5/325 tab ORAL PRN (07:15)
[2018-05-14] MEDS ORDERED: Morphine Sulfate 4mg/ml Inj (IV/IM USE ONLY) IVP PRN (07:15)
[2018-05-14 07:25] LABS: APPEARANCE,URINE SLIGHTLY CLOUDY
[2018-05-14] MEDS ORDERED: Enoxaparin 40mg Inj SUBQ SCH (09:00)
[2018-05-14] MEDS ORDERED: DONEPEZIL HCL5 MG ORAL (12:09)
[2018-05-14] MEDS ORDERED: TRAZODONE HCL100 MG ORAL (12:09)
[2018-05-14] MEDS ORDERED: ZOFRAN4 M1 ORAL (12:09)
[2018-05-14] MEDS ORDERED: ASPIR 8181 MG ORAL (12:09)
[2018-05-14] MEDS ORDERED: CRESTOR20 MG ORAL (12:09)
[2018-05-14] MEDS ORDERED: [UNRECOGNIZED DRUG - OTHER] PO (12:09)
[2018-05-14] MEDS ORDERED: DIGESTIVE ENZY1 EACH PO (12:09)
[2018-05-14] MEDS ORDERED: COL-RITE100 MG PO (12:09)
[2018-05-14] MEDS ORDERED: PANTOPRAZOLE SO40 MG ORAL (12:09)
[2018-05-14] MEDS ORDERED: OXYCODONE IR15 MG ORAL (12:09)
[2018-05-14] MEDS ORDERED: METOPROLOL SUCC50 MG ORAL (12:09)
[2018-05-14] MEDS ORDERED: CYCLOBENZAPRINE10 MG ORAL (12:09)
[2018-05-14] MEDS ORDERED: ceFAZolin sod 1 GM in D5W 55 ML IV SCH (14:00)
--- NOTE | 2018-05-14 14:41 | Diagnostic Imaging Report ---
Indication: Knee pain Technique: 4 views of the right knee Comparison: 10/18/2017 Findings:No acute fractures. No dislocations. Stable questionable small lucency in the medial epicondyle. There is some medial and lateral compartmental degenerative joint space narrowing. There are small superior and inferior pole patellar traction osteophyte. No suprapatellar effusion. No significant change Impression: Stable findings as described, since 10/18/2017. No acute bony trauma Degenerative changes as described
[2018-05-21] VITALS (14 sets, daily range): BP systolic 85–133; BP diastolic 49–84
[2018-05-21] MEDS ORDERED: Naloxone 0.4mg/ml Inj IV PRN ×2 (07:30)
[2018-05-21] MEDS ORDERED: NeoSporin Gu Irrig 1ml Amp IRRIG ONE (10:57)
[2018-05-21] MEDS ORDERED: Bacitracin 50000 Units Vial ONE (10:57)
[2018-05-21 11:11] LABS: APPEARANCE,URINE CLEAR; BILIRUBIN, URINE NEGATIVE (NEGATIVE); COLOR,URINE PALE YELLOW; GLUCOSE, URINE (UA) NEGATIVE (NEGATIVE); KETONES,URINE NEGATIVE (NEGATIVE); LEUKOCYTE ESTERASE ,URINE 1+ (NEGATIVE); NITRITE,URINE NEGATIVE (NEGATIVE); PH,URINE 5 (4.5-8.0); PROTEIN,URINE NEGATIVE (NEGATIVE); UROBILINOGEN,URINE NORMAL MG/DL (0.0-1.0)
[2018-05-21] MEDS ORDERED: cloNIDine 1000mcg/10ml inj ONE (11:54)
[2018-05-21] MEDS ORDERED: Bupivacaine 0.5% Inj 30 ml vial INJ ONE (11:55)
[2018-05-21] MEDS ORDERED: Ropivacaine 5mg/ml Vial 30ml INJ ONE (11:55)
[2018-05-21] MEDS ORDERED: LR 1000ml ONE (12:00)
[2018-05-21] MEDS ORDERED: Sterile Water Irrig 1000ml IRRIG ONE (12:00)
[2018-05-21] MEDS ORDERED: EPINEPHrine 1mg/1ml Amp ONE ×2 (12:04→12:24)
[2018-05-21] MEDS ORDERED: LR 1000ml 1,000 ML IVLG SCH (12:11)
[2018-05-21] MEDS ORDERED: NS Irrig 1000ml IRRIG ONE (12:13)
[2018-05-21] MEDS ORDERED: Midazolam 2mg/2ml Inj IVP PRN (12:15)
[2018-05-21] MEDS ORDERED: oxyCODONE HCL/Acetaminophen 5/325mg ORAL PRN (12:15)
[2018-05-21] MEDS ORDERED: Meperidine 50mg/ml Inj(FOR RIGORS ONLY) IVP PRN (12:15)
[2018-05-21] MEDS ORDERED: DiphenhydrAMINE 50mg/ml Inj IVP PRN (12:15)
[2018-05-21] MEDS ORDERED: Atropine Sulfate 0.4mg/ml inj IVP PRN (12:15)
[2018-05-21] MEDS ORDERED: Metoclopramide 10mg/2ml Inj IVP PRN (12:15)
[2018-05-21] MEDS ORDERED: fentaNYL 100 mcg/2 mL IV PRN (12:15)
[2018-05-21] MEDS ORDERED: Ketorolac 30mg Inj IV PRN ×2 (12:15)
[2018-05-21] MEDS ORDERED: Norco 5mg/325mg tab ORAL PRN (12:15)
[2018-05-21] MEDS ORDERED: Hydromorphone 0.5mg/0.5ml inj IVP PRN (12:15)
[2018-05-21] MEDS ORDERED: LORazepam Inj 2mg/ml 1ml IV PRN (12:15)
[2018-05-21] MEDS ORDERED: HYDROcodone/Acetamin 7.5/325 tab ORAL PRN (12:15)
--- NOTE | 2018-05-21 12:20 | Anethesia Preoperative Eval ---
Anesthesia Pre-op PMH/ROS General Date of Evaluation: May 21, 2018 Time of Evaluation: 12:11 Anesthesiologist: Tonya ASA Score: ASA 3 Mallampati Score Class I : Soft palate, uvula, fauces, pillars visible Class II: Soft palate, uvula, fauces visible Class III: Soft palate, base of uvula visible Class IV: Only hard plate visible Mallampati Classification: Class III Surgeon: Gilberto Diagnosis: R Knee Pain Surgical Procedure: R Total Knee Arthroplasty Anesthesia History: none Family History: no anesthesia problems Allergies: Coded Allergies: LEFLUNOMIDE (Verified Allergy, Severe, 05/14/18) dizziness SULFA (SULFONAMIDE ANTIBIOTICS) (Verified Allergy, Intermediate, RASH, ) ADHESIVE TAPE (Verified Adverse Reaction, Severe, 08/17/16) THIN SKIN DUE TO HUMIRA SIDE EFFECT Medications: see eMAR Patient NPO?: Yes NPO Date: May 20, 2018 NPO Time: 2100 Past Medical History Cardiovascular: Reports: HTN, CAD, HI, arrhythmia - AFib, 1 degree A/V Block, SVT, other - HL Pulmonary: Reports: JASWINDER - CPAP Gastrointestinal/Genitourinary: Reports: GERD - Gastroparesis Neurologic/Psychiatric: Reports: depression/anxiety Endocrine: Reports: hypothyroidism HEENT: Reports: cataract (L), cataract (R), glaucoma Other: obesity - BMI 34 PSxH Narrative: SEYMOUR, Cholecystectomy, Lumbar SX, L TKR Anesthesia Pre-op Phys. Exam Physician Exam Last Vital Signs Date Time Temp Pulse Resp B/P (MAP) Pulse Ox O2 Delivery O2 Flow Rate FiO2 05/21/18 11:25 97.7 62 18 125/77 (93) 98 97.7 05/14/18 06:45 Room Air Constitutional: NAD Neurologic: CN 2-12 intact Cardiovascular: RRR Respiratory: CTA Gastrointestinal: S/NT/ND Airway Exam Mallampati Score: Class III MO: limited ROM: limited Teeth: missing, intact Anesthesia Pre-op A/P Risk Assessment & Plan Assessment: ASA 3 Plan: GA, SED, Spinal, R Adductor Block Status Change Before Surgery: No Pre-Antibiotics Dru Grams Ancef IV Given Within 1 Hr of Incision: Yes Time Given: 12:54 Deepak Castaneda MD May 21, 2018 12:20
[2018-05-21] MEDS ORDERED: Lidocaine 1% MPF 10mg/ml 5ml ONE (12:23)
[2018-05-21] MEDS ORDERED: Dexamethasone 4mg/ml vial ONE (12:23)
[2018-05-21] MEDS ORDERED: Propofol 200mg/20ml IV ONE (12:23)
[2018-05-21] MEDS ORDERED: Alfentanil 2ml Inj ONE (12:26)
[2018-05-21] MEDS ORDERED: Midazolam 2mg/2ml Inj ONE ×2 (12:26→12:37)
[2018-05-21] MEDS ORDERED: Morphine Sulfate 2mg/ml Inj IVP PRN ×2 (12:45)
[2018-05-21] MEDS ORDERED: Morphine Sulfate 4mg/ml Inj (IV/IM USE ONLY) IVP PRN (12:45)
[2018-05-21] MEDS ORDERED: ePHEDrine 50mg/ml Inj ONE (13:11)
[2018-05-21] MEDS ORDERED: Glycopyrrolate 0.2mg/ml 1ml Vial ONE (13:16)
--- NOTE | 2018-05-21 13:41 | Immediate Post-Op Evaluation ---
Immediate Post-Op Evalulation Immediate Post-Op Evalulation Procedure: Right Knee Toatal Arthroplasty Date of Evaluation: May 21, 2018 Time of Evaluation: 14:28 IV Fluids: 500 LR Blood Products: 0 Estimated Blood Loss: 10 Urinary Output: 0 Blood Pressure Systolic: 93 Blood Pressure Diastolic: 56 Pulse Rate: 82 Respiratory Rate: 16 O2 Sat by Pulse Oximetry: 98 Temperature (Fahrenheit): 97.5 Pain Score (1-10): 1 Nausea: No Vomiting: No Complications 0 Patient Status: awake, reacts, patent, extubated, none Hydration Status: adequate Dru Grams Ancef IV Given Within 1 Hr of Incision: Yes Time Given: 12:54 Deepak Castaneda MD May 21, 2018 13:41
[2018-05-21] MEDS ORDERED: Cyclobenzaprine 10mg Tab ORAL PRN (13:52)
[2018-05-21] MEDS ORDERED: oxyCODONE 5mg IR tab ORAL PRN ×3 (14:00→17:00)
[2018-05-21] MEDS ORDERED: HYDROmorphone 1mg/ml Carpuject SUBQ PRN ×2 (14:00→14:15)
[2018-05-21] MEDS ORDERED: Hydromorphone 0.5mg/0.5ml inj SUBQ PRN (14:15)
[2018-05-21] MEDS ORDERED: Dronabinol 2.5mg Cap ORAL SCH ×2 (14:53→22:00)
[2018-05-21] MEDS ORDERED: PCA HYDROmorphone 30mg/30ml Syr IV PRN (14:56)
[2018-05-21] MEDS ORDERED: Rate Change PCA 1 Each MISC PRN (15:00)
--- NOTE | 2018-05-21 16:29 | Diagnostic Imaging Report ---
Indication: Postoperative, status post right total knee arthroplasty Technique: 2 views of the right knee Comparison: none Findings: There is a right knee prosthesis, appearing well aligned. Retained air from the surgical exposure is seen in the soft tissues. There are overlying skin mich[place]. Impression: Postoperative right knee. No unusual features
[2018-05-21] MEDS: D5 1/2NS w/KCl 20mEq 1,000 ML IV SCH (17:49)
[2018-05-21] MEDS: PCA shift volume MISC SCH (19:15)
--- NOTE | 2018-05-21 20:30 | Consultation ---
DATE OF CONSULTATION: 05/21/2018 CONSULTING PHYSICIAN: Jeffy Pelaez M.D. REFERRING PHYSICIAN: Stiven Macias M.D. REASON FOR CONSULT: Acute pain consult. HISTORY OF PRESENT ILLNESS: Dear Dr. Macias, Thank you kindly for once again consulting me to help with this patient's pain control after her knee replacement surgery today. The patient is well known to me from September 2017 when she was admitted for elective right total knee arthroplasty. At that time, her surgery was postponed, as she had a heart attack in the perioperative period, which aborted her knee replacement procedure. She was again scheduled for surgery within the past couple of weeks. That surgery was delayed for her urinary tract infection. Today, she returned to [facility] for her elective knee replacement surgery. I performed detailed history and physical examination. I reviewed the medical record in detail including advance directives. The patient does use significant narcotics preoperatively including high dose marijuana. PAST MEDICAL HISTORY: 1. Acute postoperative right knee pain status post right total knee arthroplasty by Dr. Stiven Macias April 2018. 2. History of cardiac disease status post myocardial infarction in September 2017. 3. Hypothyroidism. 4. Hypertension. 5. Heavy marijuana usage. 6. Elderly age. PAST SURGICAL HISTORY: Previous left total knee arthroplasty by Dr. Macias. MEDICATIONS: At home, Percocet, Synthroid, metoprolol, lisinopril, and aspirin. ALLERGIES: Adhesive tape and sulfa. SOCIAL HISTORY: The patient admits to smoking marijuana heavily throughout the day at least four times per day. She denies tobacco or alcohol usage. She lives alone with her cat. FAMILY HISTORY: Noncontributory. REVIEW OF SYSTEMS: Per attending physician. PHYSICAL EXAMINATION: GENERAL: Age 73, body mass index 28. Weight 69 kg. VITAL SIGNS: In the medical record. HEENT: Normocephalic and atraumatic. The patient appears much older than her stated age of 73. NEUROLOGIC: Detailed neurologic exam per Dr. Macias. Pain with range of motion of the knee, especially flexion. EXTREMITIES: Dressing appears clean and dry. BREASTS: Deferred to the hospitalist. GENITOURINARY: Deferred to the hospitalist. DIAGNOSTIC TESTING: In the medical record. IMPRESSION: 1. Acute postoperative right knee pain status post right total knee arthroplasty by Dr. Stiven Macias in April 2018. 2. History of cardiac disease, status post myocardial infarction September 2017. 3. Hypothyroidism. 4. Hypertension. 5. Heavy marijuana usage. 6. Elderly age. RECOMMENDATIONS: I spoke with the hospital pharmacist, PharmRandall Fairbanks to start the following analgesic plan. I have placed her on [id number] Marinol 2.5 mg every 8 hours for her heavy marijuana usage. I have added breakthrough doses of Dilaudid 1 mg subcutaneously every three hours p.r.n. for severe pain. I have ordered oxycodone Instant Release 5 mg and 10 mg for mild to moderate pain respectively. These are in adequate time. I will advance her Dilaudid JOB SETTER with 0.2 mg demand dose with 10-minute lockout and a 3 mg 4-hour limit. I would recommend continuous pulse oximetry and supplemental oxygen along with telemetry and cardiac monitoring per the hospital paper core machine operator. The patient chronically uses Flexeril for her chronic back pain. I have restarted this dosing every 8 hours as needed. I have instructed the nursing team to wait at least 60 minutes between any doses of sedating or pain medications to avoid respiratory depression in this obese elderly woman. I have recommended Protonix be started 40 mg nightly for GI ulcer prophylaxis and I would also recommend Mylanta 30 mL q.6 hours in case of any GERD symptom exacerbation. I will defer DVT prophylaxis to Dr. Macias, who has ordered Lovenox for chemical prophylaxis. In case of any itching complaints, I have ordered Benadryl 25 mg orally every 6 hours p.r.n. I have also ordered a dose of Zofran 4 mg as a rescue antiemetic. I have ordered Chloraseptic spray to the bedside to help with any sore throat complaints postoperatively. I recommend the spring encaser to evaluate the patient for rehabilitation transfer since the patient does live alone. Incentive spirometer usage and encourage good pulmonary toilet. Jeffy Pelaez M.D. DR: DARVIN JOB#: [id number] CC:
[2018-05-21] MEDS: Dronabinol 2.5mg Cap ORAL SCH (21:09)
[2018-05-21] MEDS: ceFAZolin sod 1 GM in D5W 55 ML IV SCH (21:09)
[2018-05-21] MEDS ORDERED: TraZODone 100mg tab ORAL SCH (22:45)
[2018-05-21] MEDS: Donepezil 5mg Tab ORAL SCH (23:11)
[2018-05-21] MEDS: Atorvastatin 80mg tab ORAL SCH (23:11)
[2018-05-21] MEDS: Metoprolol Tartrate 50mg tab ORAL SCH (23:12)
[2018-05-21] MEDS: Cyclobenzaprine 10mg Tab ORAL PRN (23:55)
[2018-05-22] VITALS (7 sets, daily range): BP systolic 101–130; BP diastolic 61–79
[2018-05-22] MEDS: ceFAZolin sod 1 GM in D5W 55 ML IV SCH (04:50)
[2018-05-22] MEDS: Dronabinol 2.5mg Cap ORAL SCH ×3 (05:43→21:37)
[2018-05-22] MEDS: D5 1/2NS w/KCl 20mEq 1,000 ML IV SCH ×2 (05:48→20:40)
[2018-05-22 06:13] LABS: HEMATOCRIT 32.5 % (37.0-47.0); HEMOGLOBIN 10.9 G/DL (12.0-16.0); MEAN CORPUSCULAR VOLUME 95 FL (80-99); PLATELET COUNT 162 K/UL (150-450); RED BLOOD COUNT 3.43 M/UL (4.20-5.40); RED CELL DISTRIBUTION WIDTH 12.2 % (11.6-14.8); WHITE BLOOD COUNT 16.4 K/UL (4.8-10.8)
[2018-05-22] MEDS: PCA shift volume MISC SCH (07:17)
[2018-05-22] MEDS ORDERED: Rate Change PCA 1 Each MISC PRN (07:30)
[2018-05-22] MEDS ORDERED: PCA HYDROmorphone 1mg/ml 30 ML IV PRN (07:30)
--- NOTE | 2018-05-22 08:01 | General Progress Note ---
Assessment/Plan Assessment/Plan s/p TKA hypertension hypercholesterolemia insomnia arrythmia PLAN post op care resume home meds DVT prophylaxis outpatient rehab post dc impression, plan, and exam edited and reviewed in detail care discussed with RN Subjective Allergies: Coded Allergies: LEFLUNOMIDE (Verified Allergy, Severe, 05/14/18) dizziness SULFA (SULFONAMIDE ANTIBIOTICS) (Verified Allergy, Intermediate, RASH, ) ADHESIVE TAPE (Verified Adverse Reaction, Severe, 08/17/16) THIN SKIN DUE TO HUMIRA SIDE EFFECT Subjective care noted post op Objective Last 24 Hour Vital Signs Date Time Temp Pulse Resp B/P (MAP) Pulse Ox O2 Delivery O2 Flow Rate FiO2 05/22/18 04:24 97.8 66 18 118/61 (80) 97 05/22/18 04:00 18 05/22/18 04:00 97.8 66 18 118/61 (80) 97 05/22/18 00:00 18 05/22/18 00:00 98.1 68 18 130/79 (96) 95 05/21/18 23:12 66 118/65 05/21/18 21:00 Nasal Cannula 2.0 Nasal Cannula 2.0 05/21/18 20:00 18 05/21/18 20:00 97.9 77 17 122/84 (97) 97 05/21/18 17:45 97.8 56 18 133/71 (91) 98 05/21/18 17:30 20 05/21/18 17:00 16 05/21/18 16:45 96.9 63 18 109/55 (73) 95 05/21/18 16:15 96.1 61 18 113/59 (77) 100 05/21/18 15:45 20 05/21/18 15:45 Nasal Cannula 2.0 Nasal Cannula 2.0 05/21/18 15:45 96.7 74 20 106/58 (74) 99 05/21/18 15:35 13 05/21/18 15:35 98.5 05/21/18 15:31 98.5 60 13 105/62 100 Nasal Cannula 05/21/18 15:20 63 15 107/68 98 Nasal Cannula 05/21/18 15:20 15 05/21/18 15:05 21 05/21/18 15:05 58 15 107/65 98 Nasal Cannula 05/21/18 14:50 71 16 91/50 98 Nasal Cannula 05/21/18 14:36 68 16 103/56 98 Nasal Cannula 05/21/18 14:27 77 16 90/53 98 Nasal Cannula 05/21/18 14:22 92 16 85/49 98 Nasal Cannula 2 05/21/18 14:19 82 16 98 05/21/18 14:17 97.5 92 16 93/56 98 Simple Mask 5 05/21/18 11:25 97.7 62 18 125/77 (93) 98 97.7 Intake and Output 05/21/18 05/22/18 18:59 06:59 Intake Total 1520 ml 1370 ml Output Total 10 ml 400 ml Balance 1510 ml 970 ml Intake Oral 320 ml 490 ml IV Total 1200 ml 880 ml Output Urine Total 400 ml Estimated Blood Loss 10 ml # Voids 1 Laboratory Tests 05/21/18 10:50: Urine Color Pale yellow, Urine Appearance Clear, Urine pH 5, Urine Specific [place] 1.015, Urine Protein Negative, Urine Glucose (UA) Negative, Urine Ketones Negative, Urine Blood 1+H, Urine Nitrite Negative, Urine Bilirubin Negative, Urine Urobilinogen Normal, Urine Leukocyte Esterase 1+H, Urine RBC 2- 4H, Urine WBC 2-4, Urine Squamous Epithelial Cells Occasional, Urine Bacteria Occasional 05/22/18 05:25: White Blood Count 16.4H, Red Blood Count 3.43L, Hemoglobin 10.9L, Hematocrit 32.5L, Mean Corpuscular Volume 95, Mean Corpuscular Hemoglobin 31.9H, Mean Corpuscular Hemoglobin Concent 33.6, Red Cell Distribution Width 12.2, Platelet Count 162, Mean Platelet Volume 7.2, Neutrophils (%) (Auto) , Lymphocytes (%) ( Auto) , Monocytes (%) (Auto) , Eosinophils (%) (Auto) , Basophils (%) (Auto) , Neutrophils % (Manual) [Pending], Lymphocytes % (Manual) [Pending], Platelet Estimate [Pending], Platelet Morphology [Pending], Prothrombin Time 10.9, Prothromb Time International Ratio 1.0 Height (Feet): 5 Height (Inches): 6.00 Weight (Pounds): 198 Objective WDWN NAD clear breath sounds bilaterally without rhonchi or wheeze [id number] without MRG NABS nontender no HSM no CCE nonfocal Jer Pardo MD May 22, 2018 08:01
[2018-05-22] MEDS: Metoprolol Tartrate 50mg tab ORAL SCH ×2 (09:30→20:44)
[2018-05-22] MEDS: Enoxaparin 40mg Inj SUBQ SCH (09:31)
--- NOTE | 2018-05-22 11:08 | 48 Hour Post Anesthesia Eval ---
Post Anesthesia Evaluation Procedure: Right Knee Toatal Arthroplasty Date of Evaluation: May 22, 2018 Time of Evaluation: 11:07 Blood Pressure Systolic: 116 0: 72 Pulse Rate: 68 Respiratory Rate: 20 Temperature (Fahrenheit): 97.5 O2 Sat by Pulse Oximetry: 98 Airway: patent Nausea: No Vomiting: No Pain Intensity: 3 Hydration Status: adequate Cardiopulmonary Status: stable Mental Status/LOC: patient returned to baseline Follow-up Care/Observations: n/a Post-Anesthesia Complications: none Follow-up care needed: N/A Rebel Vinson MD May 22, 2018 11:08
--- NOTE | 2018-05-22 11:15 | Progress Note ---
DATE: 05/22/2018 ACUTE PAIN MANAGEMENT PHYSICIAN PROGRESS NOTE MEDICATIONS: Medication administration record reviewed. Medications include Lipitor, Flexeril, Benadryl, Aricept, Marinol, Lovenox, Dilaudid BAND SCROLL SAW OPERATOR, subcutaneous Dilaudid, Lopressor, Narcan, Zofran, oxycodone, Protonix, and Desyrel. LABORATORY STUDIES: From this morning, May 22, 2018 shows white count 16, hematocrit 33, and platelets 162. INR 1.0. OBJECTIVE: VITAL SIGNS: Afebrile, temperature 98, pulse 66, respirations 18, oxygen saturation 97%, and blood pressure 118/61. I saw the patient at the bedside. I discussed the case with the overnight nurse. The patient is alert and oriented x3. An incentive spirometer is at the bedside and I encouraged aggressive usage. Dr. Macias has the patient on daily Lovenox for DVT prophylaxis. The patient denies any shortness of breath or chest pain. The patient did had a heart attack six months ago [address]. Pardo, is monitoring the patient closely for cardiopulmonary status. The patient has been receiving her [id number] Marinol without any adverse side effects or oversedation. I will continue the current dosing 2.5 mg q. 8h. as ordered. The patient has been using her Dilaudid BAND SCROLL SAW OPERATOR with good analgesic effect. I did remind the patient that she does have the breakthrough subcutaneous dose of q. 3h. p.r.n. for severe breakthrough pain. The patient admits to using 10 mg of oxycodone frequently at home, usually at least twice per day. I have increased the frequency to every three hours p.r.n. for moderate pain. I encouraged the patient to request the medication. The patient also does use Flexeril for her chronic back pain at home. This dosing is available here at the hospital as well q. 8h. p.r.n. The patient understands that she can alternate p.r.n. doses of subcutaneous Dilaudid, oral oxycodone, and oral Flexeril, in combination with the BAND SCROLL SAW OPERATOR unit. The only requirement is that the patient to wait at least 60 minutes between doses of the p.r.n. medications to avoid oversedation or respiratory compromise. I will defer the patient's medical management to Dr. Ishaaya, and ambulation to the physical therapist. Jeffy Pelaez M.D. DR: MEGGAN JOB#: [id number] CC:
[2018-05-22] MEDS: Hydromorphone 0.5mg/0.5ml inj SUBQ PRN ×2 (14:50→20:42)
[2018-05-22] MEDS ORDERED: PCA shift volume MISC SCH (19:00)
[2018-05-22] MEDS: Donepezil 5mg Tab ORAL SCH (20:43)
[2018-05-22] MEDS: Atorvastatin 80mg tab ORAL SCH (20:44)
[2018-05-22] MEDS ORDERED: TraZODone 100mg tab ORAL SCH (21:00)
[2018-05-22] MEDS: TraZODone 100mg tab ORAL PRN (22:48)
[2018-05-23] VITALS: BP 115/73
[2018-05-23 04:00] VITALS: BP 121/63
[2018-05-23] MEDS ORDERED: Rate Change PCA 1 Each MISC PRN (05:00)
[2018-05-23] MEDS: Hydromorphone 0.5mg/0.5ml inj SUBQ PRN ×3 (05:06→20:07)
--- NOTE | 2018-05-23 05:45 | Progress Note ---
DATE: 05/23/2018 ACUTE PAIN MANAGEMENT PHYSICIAN PROGRESS NOTE OBJECTIVE: VITAL SIGNS: Afebrile, pulse 60, respirations 18, blood pressure 121/63, and oxygen saturation 98%. LABORATORY STUDIES: From yesterday, 05/22/2018 shows white count 16, hematocrit 33, and platelets 162,000. MEDICATIONS: Medication administration record reviewed. Medications include IV fluids, Lipitor, Lovenox, Lopressor, ROLL FORMER Dilaudid, Marinol, at bedtime Protonix, and Aricept. As needed medications include Benadryl, Zofran, Flexeril, oxycodone, trazodone, breakthrough subcutaneous Dilaudid, and Narcan. I saw the patient at the bedside. I discussed the case with the nurse, Kan. The patient continues to tolerate her scheduled Marinol around the clock. She also has been using her Dilaudid ROLL FORMER, over 5 mg over the past ____ 10-hour nursing shift. The patient has about 24 hours left in her ROLL FORMER, based upon her current recent usage, I will recommend to continue the Dilaudid ROLL FORMER until the current syringe empties, at which time I would discontinue the ROLL FORMER at that time. The patient does have breakthrough oxycodone and subcutaneous Dilaudid use ____ which will continue when her ROLL FORMER is discontinued. I believe the current analgesic regimen seems adequate. The patient has been able to move in and out of bed to the bedside commode and I will defer to physical therapy to continue the patient's ambulation as tolerated. Dr. Pardo is following the patient's multiple medical issues closely and Dr. Macias has asked case management to assist in discharge planning and placement for this patient who lives alone at home. The patient remains on Lovenox for DVT prophylaxis. An incentive spirometer remains at the bedside with this active marijuana smoker to encourage good pulmonary toilet especially with her elderly age. We will continue supportive care as the patient remains in the hospital. Advancing her physical therapy as tolerated. Jeffy Pelaez M.D. DR: TOVA JOB#: [id number] CC:
[2018-05-23] MEDS: Dronabinol 2.5mg Cap ORAL SCH ×3 (06:08→21:37)
[2018-05-23 06:45] LABS: ANION GAP 4 mmol/L (5-15); BLOOD UREA NITROGEN 17 mg/dL (7-18); CALCIUM 8.5 MG/DL (8.5-10.1); CARBON DIOXIDE 31 MMOL/L (21-32); CHLORIDE 106 MMOL/L (98-107); CREATININE 1.1 MG/DL (0.55-1.30); POTASSIUM 4.1 MMOL/L (3.5-5.1); SODIUM 141 MMOL/L (136-145)
[2018-05-23] MEDS: oxyCODONE 5mg IR tab ORAL PRN ×3 (06:48→17:05)
[2018-05-23] MEDS: PCA shift volume MISC SCH ×2 (07:13→19:00)
[2018-05-23] MEDS ORDERED: PCA HYDROmorphone 1mg/ml 30 ML IV PRN (07:30)
[2018-05-23 08:00] VITALS: BP 125/68
--- NOTE | 2018-05-23 08:36 | General Progress Note ---
Assessment/Plan Problem List: (1) Takotsubo cardiomyopathy ICD Codes: I51.81 - Takotsubo syndrome SNOMED: 587035623 (2) Arrhythmia ICD Codes: I49.9 - Arrhythmia SNOMED: 331804925 (3) Osteoarthritis of left knee ICD Codes: M17.9 - Osteoarthritis of knee, unspecified SNOMED: 547021858 (4) Knee arthropathy ICD Codes: M12.9 - Arthropathy, unspecified SNOMED: 469812982 Status: stable Assessment/Plan cont current rx pain control dvt prophylaxis bp rx Subjective ROS Limited/Unobtainable: No Constitutional: Reports: malaise, weakness HEENT: Reports: no symptoms Cardiovascular: Reports: no symptoms Respiratory: Reports: no symptoms Gastrointestinal/Abdominal: Reports: no symptoms Genitourinary: Reports: no symptoms Neurologic/Psychiatric: Reports: no symptoms Endocrine: Reports: no symptoms Hematologic/Lymphatic: Reports: no symptoms Allergies: Coded Allergies: LEFLUNOMIDE (Verified Allergy, Severe, 05/14/18) dizziness SULFA (SULFONAMIDE ANTIBIOTICS) (Verified Allergy, Intermediate, RASH, ) ADHESIVE TAPE (Verified Adverse Reaction, Severe, 08/17/16) THIN SKIN DUE TO HUMIRA SIDE EFFECT All Systems: reviewed and negative except above Subjective no complaints.pain controlled. no cp/sob Objective Last 24 Hour Vital Signs Date Time Temp Pulse Resp B/P (MAP) Pulse Ox O2 Delivery O2 Flow Rate FiO2 05/23/18 04:00 98.2 60 18 121/63 (82) 98 05/23/18 04:00 18 05/23/18 00:00 18 05/23/18 00:00 97.8 62 18 115/73 (87) 99 05/22/18 21:00 Nasal Cannula 2.0 Nasal Cannula 2.0 05/22/18 20:44 66 116/67 05/22/18 20:00 98.5 66 18 116/67 (83) 97 05/22/18 20:00 18 05/22/18 16:00 19 05/22/18 16:00 98.0 78 19 116/71 (86) 98 05/22/18 12:00 19 05/22/18 12:00 98.4 76 19 101/67 (78) 98 05/22/18 11:08 68 20 98 05/22/18 09:30 72 114/66 05/22/18 09:00 Nasal Cannula 2.0 Nasal Cannula 2.0 Intake and Output 05/22/18 05/23/18 18:59 06:59 Intake Total 1640 ml 1200 ml Output Total 800 ml Balance 1640 ml 400 ml Intake Oral 890 ml 300 ml IV Total 750 ml 900 ml Output Urine Total 800 ml # Voids 1 Laboratory Tests 05/23/18 05:25: Prothrombin Time 10.7, Prothromb Time International Ratio 1.0, Sodium Level 141 , Potassium Level 4.1, Chloride Level 106, Carbon Dioxide Level 31, Anion Gap 4L , Blood Urea Nitrogen 17, Creatinine 1.1, Estimat Glomerular Filtration Rate , Glucose Level 105, Calcium Level 8.5 Height (Feet): 5 Height (Inches): 6.00 Weight (Pounds): 198 General Appearance: WD/WN, alert Neck: supple Cardiovascular: normal rate Respiratory/Chest: chest wall non-tender, lungs clear, normal breath sounds Abdomen: normal bowel sounds, non tender, soft, no organomegaly Edema: no edema noted Arm (L), no edema noted Arm (R), no edema noted Leg (L), no edema noted Leg (R), no edema noted Pedal (L), no edema noted Pedal (R), no edema noted Generalized Oswald June MD May 23, 2018 08:36
[2018-05-23] MEDS: D5 1/2NS w/KCl 20mEq 1,000 ML IV SCH ×2 (09:01→22:09)
[2018-05-23] MEDS: Metoprolol Tartrate 50mg tab ORAL SCH ×2 (09:01→20:52)
[2018-05-23] MEDS: Enoxaparin 40mg Inj SUBQ SCH (09:10)
[2018-05-23 12:00] VITALS: BP 141/75
[2018-05-23 16:00] VITALS: BP 117/58
[2018-05-23 20:00] VITALS: BP 108/58
[2018-05-23] MEDS: Atorvastatin 80mg tab ORAL SCH (20:52)
[2018-05-23] MEDS: Donepezil 5mg Tab ORAL SCH (20:52)
[2018-05-23] MEDS: TraZODone 100mg tab ORAL PRN (22:43)
[2018-05-24] VITALS (7 sets, daily range): BP systolic 114–142; BP diastolic 68–74
[2018-05-24] MEDS: Cyclobenzaprine 10mg Tab ORAL PRN (02:53)
--- NOTE | 2018-05-24 03:32 | Operative Note - Dictated ---
DATE OF OPERATION: 05/21/2018 NOTE: POOR AUDIO. PREOPERATIVE DIAGNOSIS: Right knee osteoarthritis. POSTOPERATIVE DIAGNOSIS: Right knee osteoarthritis. PROCEDURE: Right total knee replacement. SURGEON: Stiven Macias M.D. OBIEE LEAD DEVELOPER: Unknown. ENVELOPE CUTTER: None. PREOPERATIVE NOTE: This is a pleasant lady who has been having issues with knee associated with locking, giving away, and pain. I explained to her the surgery and the risks being infection, bleeding, anesthetic risks, and failure of the surgery. The patient agreed and consents were obtained. OPERATIVE ROOM NOTE: Under the benefit of endotracheal intubation and general anesthetic, IV and local anesthetic, the patient's knee was prepped and draped in an appropriate manner. The patient was given IV antibiotics. A midline incision was done and incised through subcutaneous tissue down to the medial retinaculum, everted the patella removing osteophytes. I then drilled down to the femur on the AP and lateral planes, sizing up to #9 making my anterior cuts, posterior cuts, anterior chamfer and posterior chamfer cuts. We used a narrow #9 femur, Ariana Persona. I accepted this tibia. I took 2 mm off the low side, which is the lateral and made my tibial plateau cut with a built-in 7-degree slope. Again, size 18. I was very pleased with this. I then placed component in after drilling the lug holes, cemented tibia and #9 femur with a 10 mm poly. After cementing the stem, removed the excess cement. We had perfect alignment. Full range of motion, but no instability. . I irrigated the wound copiously. We closed the retinaculum with Ethibond, subcutaneous tissue with 2-0 Vicryl, and skin with michoacano. The patient went to the recovery room in stable condition. Stiven Macias M.D. DR: Grey JOB#: [id number] CC:
[2018-05-24] MEDS: Dronabinol 2.5mg Cap ORAL SCH ×3 (06:10→21:31)
[2018-05-24] MEDS: Hydromorphone 0.5mg/0.5ml inj SUBQ PRN ×4 (07:17→21:04)
[2018-05-24] MEDS: PCA shift volume MISC SCH (07:21)
[2018-05-24] MEDS: Metoprolol Tartrate 50mg tab ORAL SCH ×2 (08:32→21:00)
[2018-05-24] MEDS: oxyCODONE 5mg IR tab ORAL PRN ×4 (08:33→23:38)
[2018-05-24] MEDS: Enoxaparin 40mg Inj SUBQ SCH (08:34)
[2018-05-24] MEDS ORDERED: Tubing IV Secondary IV ONE (10:44)
--- NOTE | 2018-05-24 10:57 | General Progress Note ---
Assessment/Plan Problem List: (1) Takotsubo cardiomyopathy ICD Codes: I51.81 - Takotsubo syndrome SNOMED: 947383754 (2) Arrhythmia ICD Codes: I49.9 - Arrhythmia SNOMED: 842654151 (3) Osteoarthritis of left knee ICD Codes: M17.9 - Osteoarthritis of knee, unspecified SNOMED: 081306373 (4) Knee arthropathy ICD Codes: M12.9 - Arthropathy, unspecified SNOMED: 250435601 Status: stable Assessment/Plan cont current rx pain control dvt prophylaxis bp rx Subjective ROS Limited/Unobtainable: No Constitutional: Reports: malaise, weakness HEENT: Reports: no symptoms Cardiovascular: Reports: no symptoms Respiratory: Reports: no symptoms Gastrointestinal/Abdominal: Reports: no symptoms Genitourinary: Reports: no symptoms Neurologic/Psychiatric: Reports: no symptoms Endocrine: Reports: no symptoms Hematologic/Lymphatic: Reports: no symptoms Allergies: Coded Allergies: LEFLUNOMIDE (Verified Allergy, Severe, 05/14/18) dizziness SULFA (SULFONAMIDE ANTIBIOTICS) (Verified Allergy, Intermediate, RASH, ) ADHESIVE TAPE (Verified Adverse Reaction, Severe, 08/17/16) THIN SKIN DUE TO HUMIRA SIDE EFFECT All Systems: reviewed and negative except above Subjective no complaints.pain not as well controlled. no cp/sob Objective Last 24 Hour Vital Signs Date Time Temp Pulse Resp B/P (MAP) Pulse Ox O2 Delivery O2 Flow Rate FiO2 05/24/18 08:32 87 142/74 05/24/18 08:00 18 05/24/18 08:00 98.8 87 18 142/74 (96) 95 05/24/18 04:00 98.5 77 18 124/68 (86) 98 05/24/18 04:00 18 05/24/18 00:00 98.1 73 18 123/69 (87) 95 05/24/18 00:00 18 05/23/18 21:00 Room Air Room Air 05/23/18 20:52 71 123/64 05/23/18 20:00 18 05/23/18 20:00 97.9 69 18 108/58 (75) 97 05/23/18 16:00 18 05/23/18 16:00 98.3 73 18 117/58 (77) 97 05/23/18 12:00 98.1 67 18 141/75 (97) 98 05/23/18 12:00 18 Intake and Output 05/23/18 05/24/18 18:59 06:59 Intake Total 480 ml 1300 ml Output Total 800 ml Balance 480 ml 500 ml Intake Oral 480 ml 400 ml IV Total 900 ml Output Urine Total 800 ml # Voids 3 Laboratory Tests 05/24/18 05:15: Prothrombin Time 10.2, Prothromb Time International Ratio 1.0 Height (Feet): 5 Height (Inches): 6.00 Weight (Pounds): 198 General Appearance: WD/WN Neck: supple Cardiovascular: normal rate Respiratory/Chest: chest wall non-tender, lungs clear, normal breath sounds, no respiratory distress Abdomen: normal bowel sounds, non tender, soft, no organomegaly Edema: no edema noted Arm (L), no edema noted Arm (R), no edema noted Leg (L), no edema noted Leg (R), no edema noted Pedal (L), no edema noted Pedal (R), no edema noted Generalized Oswald June MD May 24, 2018 10:57
[2018-05-24 11:52] LABS: BASOPHILS % (AUTO) 0.6 % (0.0-2.0); EOSINOPHILS % (AUTO) 1.7 % (0.0-3.0); HEMATOCRIT 30.3 % (37.0-47.0); MEAN CORPUSCULAR VOLUME 97 FL (80-99); MONOCYTES % (AUTO) 11.3 % (1.0-10.0); NEUTROPHILS % (AUTO) 56.3 % (45.0-75.0); PLATELET COUNT 150 K/UL (150-450); RED BLOOD COUNT 3.12 M/UL (4.20-5.40); RED CELL DISTRIBUTION WIDTH 12.6 % (11.6-14.8); WHITE BLOOD COUNT 12.6 K/UL (4.8-10.8)
[2018-05-24 12:05] LABS: ALANINE AMINOTRANSFERASE 16 U/L (12-78); ALBUMIN 2.9 G/DL (3.4-5.0); ALBUMIN/GLOBULIN RATIO 0.8 (1.0-2.7); ALKALINE PHOSPHATASE 58 U/L (46-116); ANION GAP 8 mmol/L (5-15); ASPARTATE AMINO TRANSFERASE 13 U/L (15-37); BILIRUBIN,TOTAL 0.6 MG/DL (0.2-1.0); BLOOD UREA NITROGEN 12 mg/dL (7-18); CALCIUM 8.4 MG/DL (8.5-10.1); CARBON DIOXIDE 28 MMOL/L (21-32); CHLORIDE 104 MMOL/L (98-107); POTASSIUM 4.4 MMOL/L (3.5-5.1); SODIUM 140 MMOL/L (136-145)
--- NOTE | 2018-05-24 12:25 | Diagnostic Imaging Report ---
EXAM: XR Left Ribs, 5 Views CLINICAL HISTORY: PAIN TECHNIQUE: Frontal and oblique views of the left ribs. COMPARISON: No relevant prior studies available. FINDINGS: Lungs: Unremarkable. Visualized portions of the lungs appear clear. No confluent pulmonary opacities. Pleural space: Unremarkable. No pneumothorax. Bones/joints: Unremarkable. No visible displaced rib fracture. IMPRESSION: No displaced rib fractures identified. If there is continued clinical concern, follow-up x-rays, CT, or nuclear medicine bone scan may be considered.
--- NOTE | 2018-05-24 17:15 | Progress Note ---
DATE: 05/24/2018 ACUTE PAIN MANAGEMENT PHYSICIAN PROGRESS NOTE MEDICATIONS: Medication administration record reviewed. Medications include Desyrel, Protonix, Roxicodone, Zofran, Dilaudid CHILD CARE COOK, Lopressor, Lovenox, Marinol, Aricept, Benadryl, Flexeril, and Lipitor. LABORATORY STUDIES: On May 22, 2018, shows white count 16, hematocrit 33, platelets 162,000. BUN 17, creatinine 1.1, glucose 105, calcium 8.5. VITAL SIGNS: Afebrile, pulse 87, respirations 18, blood pressure 142/74, oxygen saturation 95% on room air. I saw the patient at the bedside. I discussed the case with the nurse. The patient is alert and oriented x3. At this point, I feel it is appropriate to discontinue the CHILD CARE COOK unit. The patient is agreeable to the plan. She will continue with the Dilaudid injections which she has been using frequently already with good analgesic effect. I would continue the current doses. The patient also has been using her trazodone nearly every night along with p.r.n. Flexeril for her chronic back pain. The patient remains on scheduled Marinol for her having marijuana usage at home. The patient's dressing has been changed several times already by the nursing team. The patient has been able to ambulate out of bed. Dr. June and Dr. Pardo had been managing the patient's multiple medical issues including her cardiac status. I will defer to them for the patient's multiple medical issues. I have renewed the patient's Dilaudid and oxycodone orders to be certain there was no lapse. The patient does appear to be quite depressed and remains on her chronic Aricept nightly dose. For DVT prophylaxis, the patient remains on Lovenox 40 mg daily. Incentive spirometer usage was encouraged. Jeffy Pelaez M.D. DR: Mireya JOB#: [id number] CC:
[2018-05-24] MEDS: Atorvastatin 80mg tab ORAL SCH (21:00)
[2018-05-24] MEDS: Donepezil 5mg Tab ORAL SCH (21:00)
[2018-05-24] MEDS ORDERED: Vancomycin 1 GM in D5W 275 ML IVPB SCH (22:00)
[2018-05-25] VITALS (7 sets, daily range): BP systolic 101–135; BP diastolic 55–86
[2018-05-25 02:18] LABS: APPEARANCE,URINE CLEAR; BILIRUBIN, URINE NEGATIVE (NEGATIVE); COLOR,URINE PALE YELLOW; GLUCOSE, URINE (UA) NEGATIVE (NEGATIVE); KETONES,URINE NEGATIVE (NEGATIVE); LEUKOCYTE ESTERASE ,URINE NEGATIVE (NEGATIVE); NITRITE,URINE NEGATIVE (NEGATIVE); PH,URINE 6 (4.5-8.0); PROTEIN,URINE NEGATIVE (NEGATIVE); UROBILINOGEN,URINE NORMAL MG/DL (0.0-1.0)
[2018-05-25] MEDS: Dronabinol 2.5mg Cap ORAL SCH ×3 (05:37→21:57)
[2018-05-25] MEDS: Metoprolol Tartrate 50mg tab ORAL SCH ×2 (08:36→20:03)
[2018-05-25] MEDS: Hydromorphone 0.5mg/0.5ml inj SUBQ PRN ×3 (08:36→20:02)
[2018-05-25] MEDS: Enoxaparin 40mg Inj SUBQ SCH (08:45)
--- NOTE | 2018-05-25 09:22 | Diagnostic Imaging Report ---
EXAM: XR Chest, 1 View CLINICAL HISTORY: INFECT TECHNIQUE: Frontal view of the chest. COMPARISON: 10/21/2017 FINDINGS: Lungs: Unremarkable. No consolidation. Pleural space: Unremarkable. No pneumothorax. Heart: Unremarkable. No cardiomegaly. Mediastinum: Unremarkable. Bones/joints: Unremarkable. IMPRESSION: Stable chest examination without acute cardiopulmonary process.
--- NOTE | 2018-05-25 11:38 | General Progress Note ---
Assessment/Plan Problem List: (1) Takotsubo cardiomyopathy ICD Codes: I51.81 - Takotsubo syndrome SNOMED: 842375285 (2) Arrhythmia ICD Codes: I49.9 - Arrhythmia SNOMED: 357963341 (3) Osteoarthritis of left knee ICD Codes: M17.9 - Osteoarthritis of knee, unspecified SNOMED: 599995854 (4) Knee arthropathy ICD Codes: M12.9 - Arthropathy, unspecified SNOMED: 995476681 Status: stable Assessment/Plan follow up cultures tylenol for fever cont current rx pain control per pain management dvt prophylaxis bp rx Subjective ROS Limited/Unobtainable: No Constitutional: Reports: fever, malaise, weakness HEENT: Reports: no symptoms Cardiovascular: Reports: no symptoms Respiratory: Reports: no symptoms Gastrointestinal/Abdominal: Reports: no symptoms Genitourinary: Reports: no symptoms Neurologic/Psychiatric: Reports: no symptoms Endocrine: Reports: no symptoms Hematologic/Lymphatic: Reports: no symptoms Allergies: Coded Allergies: LEFLUNOMIDE (Verified Allergy, Severe, 05/14/18) dizziness SULFA (SULFONAMIDE ANTIBIOTICS) (Verified Allergy, Intermediate, RASH, ) ADHESIVE TAPE (Verified Adverse Reaction, Severe, 08/17/16) THIN SKIN DUE TO HUMIRA SIDE EFFECT All Systems: reviewed and negative except above Subjective had single elevated temp last night. beatty cultured. 1 dose vanco given. no fever since. tearful this am. pain not as well controlled. no cp/sob Objective Last 24 Hour Vital Signs Date Time Temp Pulse Resp B/P (MAP) Pulse Ox O2 Delivery O2 Flow Rate FiO2 05/25/18 09:06 98.5 05/25/18 09:00 Room Air Room Air 05/25/18 08:36 111 135/81 05/25/18 08:00 98.5 111 21 135/81 (99) 93 05/25/18 04:00 98.3 68 20 101/55 (70) 98 05/25/18 00:00 97.5 84 20 104/56 (72) 98 05/24/18 23:42 97.5 05/24/18 21:00 Room Air Room Air 05/24/18 21:00 106 125/73 05/24/18 20:00 101.1 106 19 125/73 (90) 96 05/24/18 16:00 99.8 80 18 129/72 (91) 96 05/24/18 12:00 98.8 87 18 114/72 (86) 95 Intake and Output 05/24/18 05/25/18 19:00 07:00 Intake Total 575 ml 480 ml Output Total 700 ml Balance 575 ml -220 ml Intake Oral 350 ml 480 ml IV Total 225 ml Output Urine Total 700 ml # Voids 3 Laboratory Tests 05/25/18 01:00: Urine Color Pale yellow, Urine Appearance Clear, Urine pH 6, Urine Specific [place] 1.010, Urine Protein Negative, Urine Glucose (UA) Negative, Urine Ketones Negative, Urine Blood Negative, Urine Nitrite Negative, Urine Bilirubin Negative, Urine Urobilinogen Normal, Urine Leukocyte Esterase Negative, Urine RBC 0-2, Urine WBC 0-2, Urine Squamous Epithelial Cells Few, Urine Bacteria Occasional 05/25/18 06:20: Prothrombin Time 11.0, Prothromb Time International Ratio 1.0 Height (Feet): 5 Height (Inches): 6.00 Weight (Pounds): 198 General Appearance: WD/WN Neck: supple Cardiovascular: normal rate Respiratory/Chest: lungs clear Abdomen: normal bowel sounds, non tender, soft, no organomegaly Edema: no edema noted Arm (L), no edema noted Arm (R), no edema noted Leg (L), no edema noted Leg (R), no edema noted Pedal (L), no edema noted Pedal (R), no edema noted Generalized Oswald June MD May 25, 2018 11:38
[2018-05-25] MEDS: oxyCODONE 5mg IR tab ORAL PRN ×2 (11:39→23:53)
[2018-05-25] MEDS: Cyclobenzaprine 10mg Tab ORAL PRN (18:11)
[2018-05-25] MEDS: Donepezil 5mg Tab ORAL SCH (20:02)
[2018-05-25] MEDS: Atorvastatin 80mg tab ORAL SCH (20:02)
[2018-05-26] MEDS: Cyclobenzaprine 10mg Tab ORAL PRN ×2 (02:41→13:04)
[2018-05-26 04:00] VITALS: BP 99/80
[2018-05-26] MEDS: Hydromorphone 0.5mg/0.5ml inj SUBQ PRN ×3 (04:04→15:23)
[2018-05-26] MEDS: Dronabinol 2.5mg Cap ORAL SCH ×2 (05:48→14:10)
[2018-05-26 08:00] VITALS: BP 124/70
[2018-05-26] MEDS: oxyCODONE 5mg IR tab ORAL PRN ×2 (08:28→16:29)
[2018-05-26] MEDS: Enoxaparin 40mg Inj SUBQ SCH (08:30)
[2018-05-26] MEDS: Metoprolol Tartrate 50mg tab ORAL SCH (08:30)
--- NOTE | 2018-05-26 08:30 | General Progress Note ---
Assessment/Plan Assessment/Plan s/p TKA hypertension hypercholesterolemia insomnia arrythmia PLAN post op care maintain home meds DVT prophylaxis outpatient rehab post dc- will have CM assist impression, plan, and exam edited and reviewed in detail care discussed with RN Subjective Allergies: Coded Allergies: LEFLUNOMIDE (Verified Allergy, Severe, 05/14/18) dizziness SULFA (SULFONAMIDE ANTIBIOTICS) (Verified Allergy, Intermediate, RASH, ) ADHESIVE TAPE (Verified Adverse Reaction, Severe, 08/17/16) THIN SKIN DUE TO HUMIRA SIDE EFFECT Subjective care noted post op seems stable and advancing Objective Last 24 Hour Vital Signs Date Time Temp Pulse Resp B/P (MAP) Pulse Ox O2 Delivery O2 Flow Rate FiO2 05/26/18 04:34 97.9 05/26/18 04:00 98.4 83 19 99/80 (86) 95 05/26/18 03:15 97.9 05/25/18 23:56 97.9 80 20 130/86 (101) 96 05/25/18 20:54 Room Air Room Air 05/25/18 20:15 99.1 95 20 132/82 (99) 97 05/25/18 20:03 104 130/76 05/25/18 16:00 99.2 104 20 130/76 (94) 95 05/25/18 12:00 98.2 95 20 117/73 (88) 97 05/25/18 09:00 Room Air Room Air 05/25/18 08:36 111 135/81 Intake and Output 05/25/18 05/26/18 19:00 07:00 Intake Total 985 ml 360 ml Balance 985 ml 360 ml Intake Oral 985 ml 360 ml # Voids 4 3 Labs Test 05/24/18 05:15 05/25/18 01:00 05/25/18 06:20 White Blood Count 12.6 K/UL (4.8-10.8) Red Blood Count 3.12 M/UL (4.20-5.40) Hemoglobin 10.0 G/DL (12.0-16.0) Hematocrit 30.3 % (37.0-47.0) Mean Corpuscular Volume 97 FL (80-99) Mean Corpuscular Hemoglobin 32.1 PG (27.0-31.0) Mean Corpuscular Hemoglobin Concent 33.1 G/DL (32.0-36.0) Red Cell Distribution Width 12.6 % (11.6-14.8) Platelet Count 150 K/UL (150-450) Mean Platelet Volume 7.2 FL (6.5-10.1) Neutrophils (%) (Auto) 56.3 % (45.0-75.0) Lymphocytes (%) (Auto) 30.0 % (20.0-45.0) Monocytes (%) (Auto) 11.3 % (1.0-10.0) Eosinophils (%) (Auto) 1.7 % (0.0-3.0) Basophils (%) (Auto) 0.6 % (0.0-2.0) Prothrombin Time 10.2 SEC (9.30-11.50) 11.0 SEC (9.30-11.50) Prothromb Time International Ratio 1.0 (0.9-1.1) 1.0 (0.9-1.1) Sodium Level 140 MMOL/L (136-145) Potassium Level 4.4 MMOL/L (3.5-5.1) Chloride Level 104 MMOL/L (98-107) Carbon Dioxide Level 28 MMOL/L (21-32) Anion Gap 8 mmol/L (5-15) Blood Urea Nitrogen 12 mg/dL (7-18) Creatinine 1.0 MG/DL (0.55-1.30) Estimat Glomerular Filtration Rate mL/min (>60) Glucose Level 99 MG/DL (74-106) Calcium Level 8.4 MG/DL (8.5-10.1) Total Bilirubin 0.6 MG/DL (0.2-1.0) Aspartate Amino Transf (AST/SGOT) 13 U/L (15-37) Alanine Aminotransferase (ALT/SGPT) 16 U/L (12-78) Alkaline Phosphatase 58 U/L (46-116) Total Protein 6.4 G/DL (6.4-8.2) Albumin 2.9 G/DL (3.4-5.0) Globulin 3.5 g/dL Albumin/Globulin Ratio 0.8 (1.0-2.7) Urine Color Pale yellow Urine Appearance Clear Urine pH 6 (4.5-8.0) Urine Specific [place] 1.010 (1.005-1.035) Urine Protein Negative (NEGATIVE) Urine Glucose (UA) Negative (NEGATIVE) Urine Ketones Negative (NEGATIVE) Urine Blood Negative (NEGATIVE) Urine Nitrite Negative (NEGATIVE) Urine Bilirubin Negative (NEGATIVE) Urine Urobilinogen Normal MG/DL (0.0-1.0) Urine Leukocyte Esterase Negative (NEGATIVE) Urine RBC 0-2 /HPF (0 - 2) Urine WBC 0-2 /HPF (0 - 2) Urine Squamous Epithelial Cells Few /LPF (NONE/OCC) Urine Bacteria Occasional /HPF (NONE) Height (Feet): 5 Height (Inches): 6.00 Weight (Pounds): 198 Objective WDWN NAD clear breath sounds bilaterally without rhonchi or wheeze [id number] without MRG NABS nontender no HSM no CCE nonfocal Jer Pardo MD May 26, 2018 08:30
[2018-05-26 10:14] VITALS: BP 120/73
[2018-05-26 12:00] VITALS: BP 117/81
[2018-05-26] MEDS ORDERED: ACETAMINOPHEN325 M1 ORAL (15:37)
[2018-05-26] MEDS ORDERED: ATORVASTATIN CA40 MG ORAL (15:38)
[2018-05-26] MEDS ORDERED: BENADRYL25 MG ORAL (15:39)
[2018-05-26] MEDS ORDERED: CYCLOBENZAPRINE10 MG ORAL (15:39)
[2018-05-26] MEDS ORDERED: DONEPEZIL HCL5 M2 ORAL (15:40)
[2018-05-26] MEDS ORDERED: MARINOL2.5 MG ORAL (15:41)
[2018-05-26] MEDS ORDERED: LOVENOX10 M4 SUBQ (15:42)
[2018-05-26] MEDS ORDERED: HYDROMORPHO1 MG/1 M9 SUBQ (15:43)
[2018-05-26] MEDS ORDERED: ZOFRAN4 M3 IV (15:44)
[2018-05-26] MEDS ORDERED: METOPROLOL TART50 M1 ORAL (15:44)
[2018-05-26] MEDS ORDERED: OXYCODONE HCL5 MG ORAL (15:45)
[2018-05-26] MEDS ORDERED: PANTOPRAZOLE SO40 MG ORAL (15:46)
[2018-05-26] MEDS ORDERED: TRAZODONE HCL150 MG ORAL (15:46)
[2018-05-26 16:00] VITALS: BP 130/75
--- NOTE | 2018-05-27 12:30 | Discharge Summary ---
Discharge Summary Hospital Course Date of Admission May 21, 2018 at 10:36 Date of Discharge May 26, 2018 at 17:30 Admitting Diagnosis right knee osteoarthritis Reason for Hospitalization: elective surgery ANNE Arroyo is a 73 year old female who was admitted on May 21, 2018 at 10: 36 for Right Knee Osteoarthritis Consultations dr Pelaez -pain specialist dr Pardo IM Procedures s/p 05/21/[address] Macias Right total knee replacement. Hospital Course Patient with right knee osteoarthritis admitted for elective surgery s/p 05/21 right total knee replacement X ray 05/21 post op stable - Postoperative right knee. No unusual features initially IVF, s/p perioperative abx pain management addressed, pain specialist followed neurovascular status closely monitored, stable DVT prophylaxes with Lovenox surgery followed mobilized as tolerated IS use was encouraged while in bed PT/OT TKR protocol CPM fall precautions tolerated diet IVF discontinued a/emetic prn on board GI prophylaxis bowel regimen fever 05/24, urine cx + mixed urogenital contaminants, CXR negative, leukocytosis trending down, fever resolved, use of IS encouraged home medication resumed blood pressure was stable with BB statin continued voided freely ambulated with FWW with FWB, needs intensive therapy case supervisor arranged transfer to ARU stable for discharge to acute rehabilitation unit at [facility] FINAL DIAGNOSES RIGHT KNEE OSTEOARTHRITIS STATUS POST TOTAL KNEE REPLACEMENT 05/21/18 HYPERTENSION HYPERLIPIDEMIA HYPOTHYROIDISM INSOMNIA OBSTRUCTIVE SLEEP APNEA Discharge Medications Changed Medications: Enoxaparin* (Lovenox*) 40 Mg/0.4 Ml Inj 40 MG SUBQ DAILY for DVT PROPHYLAXIS for 14 Days (Medication details modified) UNTIL 06/05/18 Continued Medications: Acetaminophen* (Acetaminophen 325MG Tablet*) 325 Mg Tablet 650 MG ORAL Q4H PRN for Mild Pain/Temp > 100.5, TAB (This prescription has been renewed) Atorvastatin Calcium* (Atorvastatin Calcium*) 40 Mg Tablet 80 MG ORAL BEDTIME, TAB (This prescription has been renewed) Cyclobenzaprine Hcl* (Flexeril*) 10 Mg Tablet 10 MG ORAL Q8HR PRN for MUSCLE SPASM, TAB (This prescription has been renewed) Diphenhydramine Hcl* (Benadryl*) 25 Mg Capsule 25 MG ORAL Q6H PRN for Itching, CAP (This prescription has been renewed) Donepezil Hcl* (Donepezil Hcl*) 5 Mg Tab.rapdis 5 MG ORAL QHS, TAB (This prescription has been renewed) Dronabinol* (Marinol*) 2.5 Mg Capsule 2.5 MG ORAL Q8HR, #15 CAP 0 Refills (This prescription has been renewed) Hydromorphone HCl/Pf (Hydromorphone 1 mg/ml Vial) 1 Mg/1 Ml Vial 1 MG SUBQ Q3HR PRN for Breakthrough Pain, VIAL (This prescription has been renewed) Metoprolol Tartrate* (Metoprolol Tartrate*) 50 Mg Tablet 50 MG ORAL EVERY 12 HOURS, TAB (This prescription has been renewed) Ondansetron* (Zofran*) 4 Mg Tablet 4 MG IV Q4HR PRN for Nausea/vomiting, TAB (This prescription has been renewed) Oxycodone Hcl Ir* (Roxicodone Ir*) 5 Mg Tablet 10 MG ORAL Q3HR PRN for PAIN 1-5, TAB (This prescription has been renewed) Pantoprazole* (Pantoprazole*) 40 Mg Tablet.dr 40 MG ORAL QHS, TAB (This prescription has been renewed) Trazodone* (Trazodone*) 150 Mg Tablet 200 MG ORAL BEDTIME PRN for insomnia, TAB (This prescription has been renewed) Discharge Condition Upon Discharge: stable Discharge Disposition Patient was discharged to Acute Rehab Hosp/Unit(62) Discharge Instructions Discharge Instructions Special Instructions I have been assigned to complete a D/C Summary on this account. I was not involved in the patient management Juanis Walker NP May 27, 2018 12:30
== END 2018-05-26 17:30 | disposition short-term general hospital (02) | DRG 470 ==
LOC: SDSOVERFLO 05:34 → UNDOADMIN 05:34 → SDSOVERFLO 05-21 10:36 → 3E 05-21 15:45
PROC: 0SRC0J9 Replacement of Right Knee Joint with Synthetic Substitute, Cemented, Open Approach (ICD-10-PCS; principal; 2018-05-21 12:00)
DX: M17.11 Unilateral primary osteoarthritis, right knee (principal); I51.81 Takotsubo syndrome; K57.90 Diverticulosis of intestine, part unspecified, without perforation or abscess without bleeding; E11.9 Type 2 diabetes mellitus without complications; M06.9 Rheumatoid arthritis, unspecified; K21.9 Gastro-esophageal reflux disease without esophagitis; I48.91 Unspecified atrial fibrillation; I10 Essential (primary) hypertension; E03.9 Hypothyroidism, unspecified; I25.2 Old myocardial infarction; Z96.652 Presence of left artificial knee joint; Z90.49 Acquired absence of other specified parts of digestive tract; G47.00 Insomnia, unspecified; G47.33 Obstructive sleep apnea (adult) (pediatric); Z88.2 Allergy status to sulfonamides; F12.90 Cannabis use, unspecified, uncomplicated; Z79.82 Long term (current) use of aspirin; G89.18 Other acute postprocedural pain; I49.9 Cardiac arrhythmia, unspecified
CPT/HCPCS: 36415; 71045; 80048; 80053; 81001; 85007; 85025; 85610; 86850; 86900; 86901; 86920; 87081; 87086; 87181; 94003; 94150; J2250; J2405; J3490